=== PATIENT | female | born 1995 | race Caucasian/White ===

== ENCOUNTER 2020-01-10 11:59 | Emergency (ER) | payer MEDICAID, SELFPAY ==
--- NOTE | ~2020-01-10 | XR_ITS ---
EXAMINATION: XR chest 2V DATE: 01/10/2020 12:38 INDICATION: Cough, shortness of breath and fever TECHNIQUE: PA and lateral views of the chest were obtained. COMPARISON: Chest radiograph dated 06/20/2012 FINDINGS: The lungs remain clear with no focal airspace opacities, pulmonary edema, pleural effusion or pneumot horax. The cardiomediastinal silhouette is normal. Visualized bones and soft tissues are unremarkable . IMPRESSION: 1. No acute cardiopulmonary disease. Reviewed, dictated and finalized at location A.
[2020-01-10 12:10] VITALS: BP 161/86; PULSE 87; RESP 22; TEMP 36.6; O2SAT 99
--- NOTE | 2020-01-10 12:30 | ED.GENADULT ---
HPI - General Adult General Chief complaint: Upper Respiratory Infection Stated complaint: horrible cough fever and runny nose History of Present Illness HPI narrative: Cayla Is a 24-year-old woman with a past medical history anxiety and depression that presented to the ED with URI type symptoms as well as shortness of breath. She had a sore throat for a few days but started having a runny nose and cough yesterday. Yesterday her fever became as high as 102 at home. Today she had worsening cough and felt short of breath so she came to the emergency department. No chest pain, nausea vomiting but does admit some diarrhea. No lightheadedness or syncope. Related Data Home Medications Medication Instructions Recorded Confirmed citalopram 40 mg PO DAILY 01/10/20 01/10/20 lurasidone [Latuda] 80 mg PO DAILY 01/10/20 01/10/20 oxcarbazepine 300 mg PO BID 01/10/20 01/10/20 trazodone 100 mg PO HS 01/10/20 01/10/20 Allergies Allergy/AdvReac Type Severity Reaction Status Date / Time Fish Containing Products Allergy Unknown Verified 12/23/16 13:25 Review of Systems Constitutional: Constitutional: Reports as per HPI Eyes: Eyes: Reports no additional eye complaints ENT: Reports as per HPI Cardiovascular: Cardiovascular: Reports no additional cardiovascular complaints Respiratory: Respiratory: Reports cough, Reports dyspnea and Denies wheezing Gastrointestinal: Gastrointestinal: Denies constipation, Reports diarrhea, Denies nausea and Denies vomiting Genitourinary: Genitourinary: Reports no additional female genitourinary complaints Musculoskeletal: Musculoskeletal: Reports no additional musculoskeletal complaints Integumentary/Breasts: Skin/Breast: Reports system reviewed and no additional complaints, except as docu Neurologic: Reports system reviewed and no additional complaints, except as documented Psychiatric: Psychiatric: Reports no additional psychiatric complaints Endocrine: Endocrine: Reports no additional endocrine complaints Hematologic/Lymphatic: Hematologic/Lymphatic: Reports no additional hematologic/lymphatic complaints Allergic/Immunologic: Allergic/Immunologic: Reports no additional allergic/immunologic complaints Exam Const: General: no acute distress Orientation/consciousness: patient oriented x3 HENMT: Other: Normocephalic, atraumatic Eyes: Conjunctivae: conjunctivae normal Pupils: Equal, round and reactive pupils present Neck: Neck: normal visual inspection Resp: Effort & Inspection: not labored, no retractions, not tachypneic and no use of accessory muscles Auscultation: clear to auscultation bilaterally Cardio: Rate: regular rate Rhythm: regular rhythm Heart sounds: no murmurs GI: GI Palp: Yes Soft to palpation, No Tenderness to palpation present (GI), No Guarding due to palpation present (GI) and No Rigid due to palpation : General: Yes no CVA tenderness Skin: General skin exam: normal color Rashes: no rashes Neuro: General: patient oriented x3 and moves all extremities Extrem: General: normal to inspection Psych: Mental Status: mental status grossly normal Course Course Emergency Course: Cayla was seen evaluated. Ordered BMP, CBC and chest x-ray to evaluate for pneumonia. labs and chest x-ray were unremarkable with exception the flu swab. She is positive for influenza B. she was educated on return precautions and discharged. Discharge Plan Discharge Clinical Impression: Influenza Patient Disposition: Home, Self-Care Condition: Stable Instructions: Influenza (ED) Additional Instructions: Please return to the emergency department for any new, worsening, or concerning symptoms especially worsening shortness of breath. Prescriptions: No Action citalopram 40 mg tablet 40 mg PO DAILY RF: 0 oxcarbazepine 300 mg tablet 300 mg PO BID RF: 0 trazodone 100 mg tablet 100 mg PO HS RF: 0 Latuda 80 mg tablet 80 mg PO DAILY
[2020-01-10 12:48] LABS: Basophils Absolute Auto 0.02 K/mm3 (0.00-0.10); Basophils Percent Auto 0.4 % (0.0-1.0); Eosinophils Absolute Auto 0.17 K/mm3 (0.02-0.50); Hematocrit 43.7 % (35.0-49.0); Hemoglobin 14.9 g/dL (12.0-15.0); Immature Granulocyte Absolute 0.03 K/mm3 (0.00-0.00); Immature Granulocyte Percent A 0.5 % (0.0-0.0); Lymphocytes Absolute Auto 0.93 K/mm3 (1.10-4.50); Lymphocytes Percent Auto 16.4 % (18.0-42.0); Mean Corpuscular HGB Conc 34.1 g/dL (32.0-36.0); Mean Corpuscular Hemoglobin 31.2 pg (27.0-31.0); Mean Corpuscular Volume 91.4 fL (78.0-102.0); Monocytes Absolute Auto 0.75 K/mm3 (0.10-0.90); Monocytes Percent Auto 13.2 % (2.0-11.0); Neutrophils Absolute Auto 3.8 K/mm3 (1.7-7.2); Neutrophils Percent Auto 66.5 % (50.0-70.0); Platelet Count Result 349 K/mm3 (150-420); Red Blood Count 4.78 M/mm3 (4.20-5.40); Red Cell Distribution Width 13.1 % (11.6-14.4); White Blood Count 5.7 K/mm3 (4.8-10.8)
[2020-01-10 13:00] LABS: Anion Gap 16.9 mmol/L (7-16); Blood Urea Nitrogen 11 mg/dL (7-18); Calcium 8.3 mg/dL (8.5-10.1); Carbon Dioxide 21 mmol/L (21-32); Chloride 104 mmol/L (98-108); Estimated CRCL calculation 128 ml/min; Estimated Glomerular Filt Rate > 60; Glucose 105 mg/dL (70-99); Osmolality Calculated 285 mOsm/kg (285-295); Potassium 3.9 mmol/L (3.5-5.1); Sodium 138 mmol/L (136-145)
[2020-01-10 13:09] LABS: Influenza Control Valid (Valid)
[2020-01-10 13:20] VITALS: RESP 20; O2SAT 98
== END 2020-01-10 13:20 | disposition home or self-care (01) ==
PROVIDERS: Emergency Provider Family Medicine; PCP Family Medicine
DX: J11.1 Influenza due to unidentified influenza virus with other respiratory manifestations (principal)
CPT/HCPCS: 36415; 71046; 80048; 85025; 87081; 87804; 87880; 99282; 99283

== ENCOUNTER 2020-08-08 15:43 | Outpatient (CLI) | payer MEDICAID, SELFPAY ==
[2020-08-10 13:17] LABS: SARS-CoV-2 RNA PCR Negative
== END 2020-08-08 15:44 | disposition home or self-care (01) ==
LOC: CHSLAB 15:46
PROVIDERS: PCP Family Medicine; Visit Provider Family Medicine
DX: Z20.828 Contact with and (suspected) exposure to other viral communicable diseases (principal)
CPT/HCPCS: 87635; C9803; U0003

== ENCOUNTER 2020-08-21 16:14 | Outpatient (CLI) | payer MEDICAID, SELFPAY ==
[2020-08-21 16:56] LABS: Influenza Control Valid (Valid)
[2020-08-22 13:32] LABS: SARS-CoV-2 RNA PCR Negative
== END 2020-08-21 16:15 | disposition home or self-care (01) ==
LOC: CHSLAB 16:17
PROVIDERS: PCP Family Medicine; Visit Provider Family Medicine
DX: J00 Acute nasopharyngitis [common cold] (principal); Z20.828 Contact with and (suspected) exposure to other viral communicable diseases
CPT/HCPCS: 87081; 87635; 87804; 87880; C9803; U0003

== ENCOUNTER 2021-01-17 08:07 | Outpatient (CLI) | payer MEDICAID, SELFPAY ==
--- NOTE | ~2021-01-17 | US_ITS ---
US right upper quadrant DATE: 01/17/2021 08:37 INDICATION: Hyperlipidemia. Nonalcoholic fatty liver disease. TECHNIQUE: Real-time imaging of liver, pancreas, gallbladder fossa areas COMPARISON: 10/18/2015 CT abdomen pelvis FINDINGS: The gallbladder is surgically absent. The pancreas is obscured by bowel gas. There is fatty infiltration of the liver, which is difficult to penetrate. The liver would be more op timally evaluated by CT or MR examination as result. Doppler evaluation is limited. No obvious hepati c space-occupying mass lesion is evident. IMPRESSION: Status post cholecystectomy Fatty infiltration of liver Limited evaluation of pancreas The liver and pancreas would be more optimally evaluated by CT examination Reviewed, dictated and finalized at Location A. Reviewed, dictated and finalized at location A.
[2021-01-17 08:19] LABS: Basophils Absolute Auto 0.04 K/mm3 (0.00-0.10); Basophils Percent Auto 0.6 % (0.0-1.0); Eosinophils Absolute Auto 0.32 K/mm3 (0.02-0.50); Eosinophils Percent Auto 5.1 % (1.0-6.0); Immature Granulocyte Absolute 0.02 K/mm3 (0.00-0.00); Immature Granulocyte Percent A 0.3 % (0.0-0.0); Lymphocytes Absolute Auto 1.85 K/mm3 (1.10-4.50); Lymphocytes Percent Auto 29.6 % (18.0-42.0); Mean Corpuscular HGB Conc 34.1 g/dL (32.0-36.0); Mean Corpuscular Hemoglobin 31.2 pg (27.0-31.0); Mean Corpuscular Volume 91.5 fL (78.0-102.0); Mean Platelet Volume 9.4 fl (9.2-11.8); Monocytes Absolute Auto 0.66 K/mm3 (0.10-0.90); Monocytes Percent Auto 10.6 % (2.0-11.0); Neutrophils Absolute Auto 3.4 K/mm3 (1.7-7.2); Neutrophils Percent Auto 53.8 % (50.0-70.0); Platelet Count Result 404 K/mm3 (150-420); Red Blood Count 4.81 M/mm3 (4.20-5.40); White Blood Count 6.2 K/mm3 (4.8-10.8)
[2021-01-17 08:46] LABS: Alanine Aminotransferase 56 U/L (14-59); Albumin Level 3.6 g/dL (3.4-5.0); Alkaline Phosphatase 65 U/L (46-116); Anion Gap 11 mmol/L (8-16); Aspartate Amino Transferase 37 U/L (15-37); Bilirubin Direct 0.1 mg/dL (0-0.2); Bilirubin,Total 0.5 mg/dL (0.00-1.00); Blood Urea Nitrogen 16 mg/dL (7-18); Calcium 8.4 mg/dL (8.5-10.1); Carbon Dioxide 26 mmol/L (21-32); Chloride 102 mmol/L (98-108); Cholesterol 254 mg/dL (0-200); Estimated Glomerular Filt Rate > 60; GGT 80 U/L (5-55); Glucose 131 mg/dL (70-99); HDL Direct 35 mg/dL (40-60); LDL Cholesterol Calculated 160 mg/dL (<130); Osmolality Calculated 291 mOsm/kg (285-295); Potassium 3.7 mmol/L (3.5-5.1); Sodium 139 mmol/L (136-145); Total Protein 7.2 g/dL (6.4-8.2); Triglycerides 297 mg/dL (0-150)
[2021-01-20 15:15] LABS: Hemoglobin A1C 5.9 % (<5.7)
[2021-01-20 19:17] LABS: Hepatitis A Antibody IgM Nonreactive; Hepatitis B Core Antibody Nonreactive (Nonreactive); Hepatitis B Surface Antigen Nonreactive (Nonreactive); Hepatitis C Signal to Cutoff 0.08 ratio (<1.00); Hepatitis C Virus Antibody Nonreactive (Nonreactive)
== END 2021-01-17 08:08 | disposition home or self-care (01) ==
PROVIDERS: PCP Family Medicine; Visit Provider Family Medicine
DX: K76.0 Fatty (change of) liver, not elsewhere classified (principal); E78.5 Hyperlipidemia, unspecified; I10 Essential (primary) hypertension; R73.9 Hyperglycemia, unspecified
CPT/HCPCS: 36415; 76705; 80053; 80061; 80074; 82248; 82977; 83036; 85025

== ENCOUNTER 2021-02-15 12:07 | Outpatient (CLI) | payer MEDICAID, SELFPAY ==
--- NOTE | ~2021-02-15 | XR_ITS ---
XR wrist RT min 3V 02/15/2021 12:33 INDICATION: Right wrist pain PROCEDURE: 4 views right wrist COMPARISON: No prior studies for comparison. FINDINGS: Fracture, dislocation or subluxation is not identified. The soft tissues appear within norm al limits. No foreign bodies are identified. IMPRESSION: 1: NO ACUTE BONE OR JOINT ABNORMALITY IDENTIFIED. Reviewed, dictated and finalized at location A.
== END 2021-02-15 12:08 | disposition home or self-care (01) ==
LOC: CHSIMG 12:09
PROVIDERS: PCP Family Medicine; Visit Provider Family Medicine
DX: M25.531 Pain in right wrist (principal)
CPT/HCPCS: 73110

== ENCOUNTER 2021-03-21 13:56 | Outpatient (CLI) | payer MEDICAID, SELFPAY | END 2021-03-21 13:57 | disposition home or self-care (01) | LOC: CHSCOVIDVC 13:57 | PROVIDERS: PCP Family Medicine | DX: Z53.9 Procedure and treatment not carried out, unspecified reason (principal) | CPT/HCPCS: 99199 ==

== ENCOUNTER 2021-07-15 11:01 | Outpatient (CLI) | payer OTHER, SELFPAY ==
[2021-07-15 12:19] LABS: SARS-CoV-2 RNA PCR Negative (Negative)
== END 2021-07-15 11:02 | disposition home or self-care (01) ==
LOC: CHSLAB 11:05
PROVIDERS: PCP Family Medicine; Visit Provider Family Medicine
DX: R06.02 Shortness of breath (principal); R19.7 Diarrhea, unspecified; J02.9 Acute pharyngitis, unspecified; Z20.822 Contact with and (suspected) exposure to COVID-19
CPT/HCPCS: 87081; 87880; C9803; U0003; U0005

== ENCOUNTER 2021-08-12 10:33 | Outpatient (CLI) | payer OTHER, SELFPAY ==
[2021-08-12 10:46] LABS: Hematocrit 41.7 % (35.0-49.0); Hemoglobin 14.1 g/dL (12.0-15.0); Mean Corpuscular HGB Conc 33.8 g/dL (32.0-36.0); Mean Corpuscular Hemoglobin 30.6 pg (27.0-31.0); Mean Corpuscular Volume 90.5 fL (78.0-102.0); Mean Platelet Volume 9.8 fl (9.2-11.8); Platelet Count Result 256 K/mm3 (150-420); Red Blood Count 4.61 M/mm3 (4.20-5.40); Red Cell Distribution Width 13.1 % (11.6-14.4); White Blood Count 3.6 K/mm3 (4.8-10.8)
[2021-08-12 10:56] LABS: Hemoglobin A1C 5.5 % (<5.7)
[2021-08-12 11:13] LABS: Band Neutrophils Percent 2 % (0-6); Eosinophils Absolute Manual 0.07 K/mm3 (0.02-0.5); Eosinophils Percent Manual 2 % (1-6); Lymphocytes Percent Manual 39 % (18-44); Monocytes Absolute Manual 0.46 K/mm3 (0.1-0.90); Monocytes Percent Manual 13 % (3-9); Myelocytes Percent 1 %; Neutrophils Absolute Manual 1.62 K/mm3 (1.7-7.2); Neutrophils Percent Manual 43 % (46-73); Total Cells Counted 100
[2021-08-12 11:14] LABS: Platelet Estimate Adequate (Adequate)
[2021-08-12 11:46] LABS: Alanine Aminotransferase 65 U/L (14-59); Albumin Level 3.5 g/dL (3.4-5.0); Alkaline Phosphatase 57 U/L (46-116); Anion Gap 10 mmol/L (8-16); Aspartate Amino Transferase 37 U/L (15-37); Bilirubin,Total 0.7 mg/dL (0.00-1.00); Blood Urea Nitrogen 9 mg/dL (7-18); CRP < 0.5 mg/dL (0.0-0.9); Calcium 7.8 mg/dL (8.5-10.1); Carbon Dioxide 24 mmol/L (21-32); Chloride 105 mmol/L (98-108); Cholesterol 207 mg/dL (0-200); Estimated Glomerular Filt Rate > 60; Glucose 99 mg/dL (70-99); HDL Direct 24 mg/dL (40-60); LDL Cholesterol Calculated 113 mg/dL (<130); Osmolality Calculated 286 mOsm/kg (285-295); Potassium 4.1 mmol/L (3.5-5.1); Sodium 139 mmol/L (136-145); Thyroid Stimulating Hormone 3.61 uIU/mL (0.36-3.74); Total Protein 6.8 g/dL (6.4-8.2); Triglycerides 349 mg/dL (0-150)
[2021-08-17 12:15] LABS: Vitamin D 25 Hydroxy 17 ng/mL (30-100)
== END 2021-08-12 10:34 | disposition home or self-care (01) ==
LOC: CHSLAB 10:36
PROVIDERS: PCP Family Medicine; Visit Provider Nurse Practitioner Family
DX: R20.0 Anesthesia of skin (principal); I10 Essential (primary) hypertension; E83.51 Hypocalcemia
CPT/HCPCS: 36415; 80053; 80061; 82306; 83036; 84443; 85025; 86140

== ENCOUNTER 2021-08-15 12:02 | Outpatient (CLI) | payer OTHER, SELFPAY ==
--- NOTE | ~2021-08-15 | XR_ITS ---
EXAMINATION: XR abdomen obstructive series DATE: 08/15/2021 13:09 INDICATION: Abdominal pain with nausea TECHNIQUE: Supine and upright views of the abdomen. FINDINGS: No prior studies for comparison. The visualized lung parenchyma is normal.. There is a nonobstructed bowel gas pattern. Gas and stool are seen throughout the colon to the level of the rectum. There is no free air. There are cholecyste ctomy clips. IMPRESSION: 1. No acute abdominal abnormality. Reviewed, dictated and finalized at location B.
[2021-08-15 13:28] LABS: Hematocrit 36.2 % (35.0-49.0); Hemoglobin 12.9 g/dL (12.0-15.0); Mean Corpuscular HGB Conc 35.6 g/dL (32.0-36.0); Mean Corpuscular Volume 92.6 fL (78.0-102.0); Mean Platelet Volume 10.5 fl (9.2-11.8); Platelet Count Result 251 K/mm3 (150-420); Red Blood Count 3.91 M/mm3 (4.20-5.40); Red Cell Distribution Width 12.9 % (11.6-14.4); White Blood Count 5.3 K/mm3 (4.8-10.8)
[2021-08-15 13:49] LABS: Alanine Aminotransferase 93 U/L (14-59); Albumin Level 3.3 g/dL (3.4-5.0); Alkaline Phosphatase 64 U/L (46-116); Amylase 39 U/L (25-115); Anion Gap 13 mmol/L (8-16); Aspartate Amino Transferase 81 U/L (15-37); Band Neutrophils Percent 1 % (0-6); Bilirubin,Total 2.1 mg/dL (0.00-1.00); Blood Urea Nitrogen 10 mg/dL (7-18); Calcium 7.6 mg/dL (8.5-10.1); Carbon Dioxide 22 mmol/L (21-32); Chloride 103 mmol/L (98-108); Estimated Glomerular Filt Rate > 60; Glucose 118 mg/dL (70-99); Lipase 126 U/L (73-393); Lymphocytes Absolute Manual 2.17 K/mm3 (1.1-4.5); Lymphocytes Percent Manual 41 % (18-44); Monocytes Absolute Manual 0.68 K/mm3 (0.1-0.90); Monocytes Percent Manual 13 % (3-9); Neutrophils Absolute Manual 2.43 K/mm3 (1.7-7.2); Neutrophils Percent Manual 45 % (46-73); Osmolality Calculated 286 mOsm/kg (285-295); Platelet Estimate Adequate (Adequate); Potassium 3.7 mmol/L (3.5-5.1); Sodium 138 mmol/L (136-145); Total Cells Counted 100
[2021-08-15 14:13] LABS: SARS-CoV-2 RNA PCR Negative (Negative)
== END 2021-08-15 12:03 | disposition home or self-care (01) ==
LOC: CHSLAB 12:03
PROVIDERS: PCP Family Medicine; Visit Provider Family Medicine
DX: R10.9 Unspecified abdominal pain (principal); J34.89 Other specified disorders of nose and nasal sinuses; Z20.822 Contact with and (suspected) exposure to COVID-19
CPT/HCPCS: 36415; 74019; 80053; 82150; 83690; 85025; C9803; U0003; U0005

== ENCOUNTER 2021-08-15 16:49 | Emergency (ER) | payer OTHER, SELFPAY ==
--- NOTE | ~2021-08-15 | CT_ITS ---
EXAMINATION: CT abdomen pelvis w con INDICATION: Right upper quadrant pain TECHNIQUE: Computed tomographic images of the abdomen and pelvis were obtained after the administrati on of 100 cc of Omnipaque 350 intravenous contrast. The dose-length product (DLP) was 1650.24 mGy-cm. Automated exposure control and iterative reconstruction technique were employed. COMPARISON: 10/18/2015 FINDINGS: The heart size is normal. A 3 mm nodule of the right lower lobe likely represents old granu lomatous disease. There is geographic low-attenuation in the posterior/inferior portion of the spleen . The gallbladder is surgically absent. The liver, pancreas, and adrenal glands are normal. The kidne ys are unremarkable. No pathologically enlarged abdominal or pelvic lymph nodes are identified. There is no free intraperitoneal gas or evidence of bowel obstruction. There is mild lumbar spondylosis. IMPRESSION: 1. Geographic area of low attenuation in the posterior/inferior aspect of the spleen. In the absence of known trauma, findings consistent with splenic infarct. Reviewed, dictated and finalized at location A. IMPRESSION: 1. Geographic area of low attenuation in the posterior/inferior aspect of the s pleen. In the absence of known trauma, findings consistent with splenic infarct .
[2021-08-15 17:00] VITALS: BP 173/102; PULSE 105; RESP 20; TEMP 37.6; O2SAT 97
--- NOTE | 2021-08-15 17:12 | ED.GENADULT ---
HPI - General Adult General Chief complaint: Abdominal Pain Stated complaint: elevated lab work Source: patient and family Mode of arrival: ambulatory Limitations: no limitations History of Present Illness HPI narrative: Cayla is a 26F with a PMH of depression, HTN and a history of cholecystectomy that presented to the ED from her PCP office with RUQ pain. It started last night and has become progressively worse. It a cramping pain that comes and goes. It is worse when she is lying down. She admits nauea but no vomiting. No diarrhea or constipation. Related Data Home Medications Medication Instructions Recorded Confirmed lurasidone [Latuda] 80 mg PO DAILY 01/10/20 08/16/21 oxcarbazepine 300 mg PO BID 01/10/20 08/16/21 famotidine 20 mg PO DAILY 08/15/21 08/16/21 fluoxetine 20 mg PO DAILY 08/15/21 08/16/21 hydrochlorothiazide 25 mg PO DAILY 08/15/21 08/16/21 metoprolol succinate 50 mg PO DAILY 08/15/21 08/16/21 spironolactone 50 mg PO DAILY 08/15/21 08/16/21 Allergies Allergy/AdvReac Type Severity Reaction Status Date / Time Fish Containing Products Allergy Unknown Swelling Verified 08/16/21 14:20 of Lip/Tongue/Throat Review of Systems Constitutional: Constitutional: Reports no additional constitutional complaints Eyes: Eyes: Reports no additional eye complaints ENT: Reports system reviewed and no additional complaints, except as documented Cardiovascular: Cardiovascular: Reports no additional cardiovascular complaints Respiratory: Respiratory: Reports no additional respiratory complaints Gastrointestinal: Gastrointestinal: Reports as per HPI Genitourinary: Genitourinary: Reports no additional female genitourinary complaints Musculoskeletal: Musculoskeletal: Reports no additional musculoskeletal complaints Integumentary/Breasts: Skin/Breast: Reports system reviewed and no additional complaints, except as docu Neurologic: Reports system reviewed and no additional complaints, except as documented Psychiatric: Psychiatric: Reports no additional psychiatric complaints Endocrine: Endocrine: Reports no additional endocrine complaints Hematologic/Lymphatic: Hematologic/Lymphatic: Reports no additional hematologic/lymphatic complaints Allergic/Immunologic: Allergic/Immunologic: Reports no additional allergic/immunologic complaints PMFSH Past Medical History Medical History (Updated 08/17/21 @ 00:00 by Background Daemon) Bipolar 1 disorder Depression Dyslipidemia GERD (gastroesophageal reflux disease) Hypertension Surgical History Surgical History History of ear surgery S/P tonsillectomy Status post cholecystectomy Social History Social History Smoking status: Never smoker Alcohol intake: never Substance use: never Living arrangements: with family Exam Const: General: no acute distress and alert Orientation/consciousness: patient oriented x3 Limitations: No altered mental status HENMT: Head: normal to inspection Other: normocephalic, atraumatic Eyes: Conjunctivae: conjunctivae normal Pupils: Equal, round and reactive pupils present Neck: Neck: normal visual inspection Chest: Chest palpation & inspection: normal inspection of the chest Resp: Effort & Inspection: normal respiratory effort and not tachypneic Auscultation: clear to auscultation bilaterally Cardio: Rate: regular rate Rhythm: regular rhythm GI: Other: +Pond sign and some epigastric tenderness. No rebound tenderness or guarding. Normal BS : General: Yes no CVA tenderness Skin: General skin exam: normal color Rashes: no rashes Neuro: General: patient oriented x3, moves all extremities and no meningeal signs Extrem: General: normal to inspection Psych: Mental Status: mental status grossly normal Course Course Emergency Course: Ordered UA and urine test. EXAMINAT
[2021-08-15] MEDS: ONDANSETRON HCL ODT 4 MG TABLET PO (17:28)
[2021-08-15 17:36] LABS: SPREG INTERNAL CONTROL Positive; Serum Qual hCG Negative
--- NOTE | 2021-08-15 19:20 | PC.NURSE ---
REPORT PROVIDED TO ONCOMING GIOVANNA GARCÍA
[2021-08-15] MEDS: ENOXAPARIN 60 MG/0.6 ML SYRINGE 50 MG SUB-Q (20:17)
[2021-08-15] MEDS: ENOXAPARIN 100 MG/ML SYRINGE SUB-Q (20:18)
[2021-08-15 20:28] VITALS: BP 148/81; PULSE 98; RESP 20; TEMP 36.6; O2SAT 98
--- NOTE | 2021-08-16 13:10 | PC.NURSE ---
Pt called c/o pain and asked if she would need to be seen again. Pt advised she would need to be seen again. Pt also stated [facility] in [place] did not have the dose of Lovenox prescribed. Able to find proper dose at [facility] in [place]. Prescription called in. Called [facility] and cancelled prescription. Attempted to call pt to notify her of changes. Pt did not answer the phone and does not have voicemail set up. Will attempt to contact pt later.
--- NOTE | 2021-08-16 13:14 | PC.NURSE ---
Was able to reach pt. Pt notified prescription for Lovenox is at [facility] in [place]. Pt verbalized understanding.
== END 2021-08-15 20:31 | disposition home or self-care (01) ==
PROVIDERS: Emergency Provider Family Medicine; PCP Family Medicine
DX: D73.5 Infarction of spleen (principal); R94.5 Abnormal results of liver function studies
CPT/HCPCS: 74177; 84703; 96372; 99283; A9270; J1650; Q9967

== ENCOUNTER 2021-08-16 13:52 | Emergency (ER) | payer OTHER, SELFPAY ==
[2021-08-16 14:05] VITALS: BP 164/99; PULSE 106; RESP 20; TEMP 36.9; O2SAT 97
[2021-08-16 14:27] VITALS: BP 152/82; PULSE 104
--- NOTE | 2021-08-16 14:58 | ED.ABDPAIN ---
HPI - Abdominal Pain General Chief Complaint: Abdominal Pain Stated Complaint: L sided abd pain, feels like pressure Time Seen by Provider: 08/16/21 14:58 Source: patient Mode of arrival: ambulatory Limitations: no limitations History of Present Illness HPI narrative: 26-year-old woman comes in today complaining of left upper abdomen pain that has been present for the last day or so. She states the pain comes and goes and is worse when she takes deep breath. It is also worse when she lies down. She states that she was here last night and diagnosed with a splenic infarction and was told that she would get some pain medication. She has had no fever, vomiting, lightheadedness, or shortness of breath. MD elicited complaint: abdominal pain Pain Consistency: intermittent Location: LUQ Severity: moderate Quality: cramping and other (Pressure) Radiation: none Migration to: no migration Exacerbating factors: other (Position and taking a deep breath) Relieving factors: rest Associated symptoms: nausea Treatments prior to arrival: other (Warfarin and enoxaparin) Related Data Patient : No Home Medications Medication Instructions Recorded Confirmed lurasidone [Latuda] 80 mg PO DAILY 01/10/20 08/16/21 oxcarbazepine 300 mg PO BID 01/10/20 08/16/21 famotidine 20 mg PO DAILY 08/15/21 08/16/21 fluoxetine 20 mg PO DAILY 08/15/21 08/16/21 hydrochlorothiazide 25 mg PO DAILY 08/15/21 08/16/21 metoprolol succinate 50 mg PO DAILY 08/15/21 08/16/21 spironolactone 50 mg PO DAILY 08/15/21 08/16/21 Allergies Allergy/AdvReac Type Severity Reaction Status Date / Time Fish Containing Products Allergy Unknown Swelling Verified 08/16/21 14:20 of Lip/Tongue/Throat Review of Systems Review of Systems: All systems reviewed & are unremarkable except as noted in HPI and below Constitutional: Constitutional: Denies chills, Denies fatigue, Denies fever(s) and Denies weakness Cardiovascular: Cardiovascular: Denies chest pain and Denies radiating jaw, neck or arm pain Respiratory: Respiratory: Denies cough, Denies dyspnea and Denies wheezing Gastrointestinal: Gastrointestinal: Reports abdominal pain, Denies diarrhea, Reports nausea and Denies vomiting Genitourinary: Genitourinary: Denies nocturia and Denies dysuria Integumentary/Breasts: Skin/Breast: Denies pruritus, Denies erythema and Denies rash Neurologic: Denies vertigo, Denies dizziness, Denies syncope, Denies focal weakness and Denies weakness [facility] Past Medical History Medical History (Updated 08/16/21 @ 15:13 by Rosalio Matta MD) Bipolar 1 disorder Depression Dyslipidemia GERD (gastroesophageal reflux disease) Hypertension Surgical History Surgical History History of ear surgery S/P tonsillectomy Status post cholecystectomy Social History Social History Smoking status: Never smoker Alcohol intake: never Substance use: never Living arrangements: with family Exam Const: General: alert Nutritional Appearance: obese Orientation/consciousness: patient oriented x3 Other: Mild acute distress. Resp: Effort & Inspection: normal respiratory effort and not labored Auscultation: clear to auscultation bilaterally, no rales, no rhonchi and no wheezes Cardio: Rate: regular rate Rhythm: regular rhythm Heart sounds: no murmurs GI: GI Palp: Yes Soft to palpation and Yes Tenderness to palpation present (GI) (Left upper quadrant. No rebound or guarding) Skin: General skin exam: normal color, no jaundice and no pallor Rashes: no rashes Neuro: General: patient oriented x3, moves all extremities, no focal motor deficits and CN's II-XI intact bilaterally Speech: normal speech Gait exam (Neuro): Normal gait present Extrem: General: normal to inspection and no clubbing, cyanosis or edema Psych: Appearance: grossly normal and well kempt Ment
[2021-08-16 15:17] VITALS: BP 158/90; PULSE 97; RESP 18; TEMP 37.2; O2SAT 99
== END 2021-08-16 15:25 | disposition home or self-care (01) ==
PROVIDERS: Emergency Provider Emergency Medicine; PCP Family Medicine
DX: D73.5 Infarction of spleen (principal); E78.5 Hyperlipidemia, unspecified; K21.9 Gastro-esophageal reflux disease without esophagitis; I10 Essential (primary) hypertension
CPT/HCPCS: 99283

== ENCOUNTER 2021-08-21 08:55 | Outpatient (CLI) | payer OTHER, SELFPAY ==
--- NOTE | ~2021-08-21 | CT_ITS ---
EXAMINATION: CT abdomen pelvis w con EXAM DATE: 08/21/2021 09:45 INDICATION: Elevated bilirubin elev bilirubin, infarct of spleen, N/V/D. TECHNIQUE: Spiral CT of the abdomen and pelvis was performed following intravenous injection of 100 m L Omnipaque 350. Axial, coronal and sagittal images of the abdomen and pelvis were reviewed. The do se-length product (DLP) for this examination was 1559.77 mGy-cm. The exposure was tailored according to patient size (auto mA exposure control), and iterative reconstruction (ASIR) was used as addition al dose reduction technique. Comparison is made to prior examination from 08/15/2021. FINDINGS: There is moderate splenomegaly. Again there is small to moderate-sized region of geographic ally shaped splenic hypodensity consistent with infarction. There is hepatic steatosis without suspi cious focal lesion identified. Adrenal glands, pancreas are unremarkable. There are cholecystectomy clips. Portal and splenic veins are patent. Kidneys enhance symmetrically. There is no hydronephro sis. The uterus and ovaries are unremarkable, no adnexal mass. The bladder is unremarkable. There is no retroperitoneal or pelvic lymphadenopathy. The appendix is normal. The stomach and small bowel are unremarkable. There is expected amount of c olonic stool. No free intraperitoneal gas. The heart is normal in size. There are no pericardial or pleural effusions. There is 5 mm left lower lobe pleural-based nodule on image 19. There are no osteoblastic or osteolytic lesions identified. IMPRESSION: 1. 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 2. Left basilar nodule likely postinfectious given patient's age. 3. Hepatic steatosis. 4. Cholecystectomy. Reviewed, dictated and finalized at location B.
== END 2021-08-21 08:56 | disposition home or self-care (01) ==
LOC: CHSIMG 08:56
PROVIDERS: PCP Family Medicine; Visit Provider Family Medicine
DX: E80.7 Disorder of bilirubin metabolism, unspecified (principal); D73.5 Infarction of spleen
CPT/HCPCS: 74177; Q9967

== ENCOUNTER 2021-08-25 07:51 | Outpatient (CLI) | payer OTHER, SELFPAY ==
--- NOTE | ~2021-08-25 | US_ITS ---
EXAMINATION: US abdomen complete EXAM DATE: 08/25/2021 08:19 INDICATION: Jaundice. TECHNIQUE: Multiple grayscale and Doppler images of the complete abdomen were obtained (by a technolo cade who performed the scan) and subsequently reviewed. Comparison is made to prior examination from 01/17/2021. FINDINGS: The abdominal aorta is normal in caliber. Visualized portion IVC is patent. The pancreatic head a nd body are normal in appearance. The pancreatic tail is not visualized. There is echogenic liver parenchyma with poor penetration, hepatic steatosis. There are no focal libby er lesions identified. There is no evidence of intrahepatic biliary duct dilation. Portal venous f low was seen in the hepatopedal, normal direction and has normal Doppler waveform. Common bile duct measures 4 mm, which is normal. The gallbladder fossa is unremarkable. Right kidney: There is normal contour and echogenicity. It measures 12.5 x 4.4 x 6.1 centimeters. There are no focal renal lesions identified. There is no hydronephrosis. Left kidney: There is normal contour and echogenicity. It measures 12.5 x 5.0 x 5.7 centimeters. T here are no focal renal lesions identified. There is no hydronephrosis. The spleen is 17.3 cm in size, moderately enlarged. There is a focal heterogeneous hypoechoic masslik e region within this measuring [address] Correlating with prior CT abdomen pelvis from 08/21/2021, shape on that study was most consistent with a splenic infarction. IMPRESSION: 1. Moderate splenomegaly with hypoechoic heterogeneous region likely infarction seen on recent CT. 2. Hepatic steatosis. Reviewed, dictated and finalized at location A. IMPRESSION: 1. Moderate splenomegaly with hypoechoic heterogeneous region likely infarctio n seen on recent CT. 2. Hepatic steatosis.
[2021-08-25 08:50] LABS: Alanine Aminotransferase 90 U/L (14-59); Albumin Level 3.3 g/dL (3.4-5.0); Alkaline Phosphatase 67 U/L (46-116); Aspartate Amino Transferase 60 U/L (15-37); Bilirubin Direct 0.2 mg/dL (0-0.2); Bilirubin Indirect 0.5 mg/dL (0-1.0); Bilirubin,Total 0.7 mg/dL (0.00-1.00); Total Protein 6.8 g/dL (6.4-8.2)
== END 2021-08-25 07:52 | disposition home or self-care (01) ==
LOC: CHSIMG 07:52
PROVIDERS: PCP Family Medicine; Visit Provider Family Medicine
DX: R17 Unspecified jaundice (principal)
CPT/HCPCS: 36415; 76700; 80076

== ENCOUNTER 2022-04-11 12:22 | Emergency (ER) | payer OTHER, SELFPAY ==
--- NOTE | ~2022-04-11 | CT_ITS ---
EXAMINATION: CT abdomen pelvis wo con DATE: 04/11/2022 14:08 INDICATION: LOWER LEFT ABDOMEN PAIN AND DIARRHEA X 8 HOURS TECHNIQUE: Computed tomography (CT) of the abdomen and pelvis was performed without intravenous contr ast. Automated exposure control and iterative reconstruction technique were employed. The dose-length product was 1572.18 mGy-cm. COMPARISON: 08/21/2021. FINDINGS: Lower thorax: Unremarkable Liver: Normal. Biliary/Gallbladder: Gallbladder is absent. No bile duct dilation. Pancreas: No mass or duct dilation. Spleen: Normal. Adrenals:No mass. Kidneys: No mass, stone, or hydronephrosis. GI tract: No small or large bowel dilation. Normal appendix. Mesentery/Peritoneum: No ascites, mass, or free air. Retroperitoneum: No mass. Pelvis: Pelvic organs are within normal limits. Soft Tissues: Soft tissues and body wall unremarkable. Bones: No acute osseous finding. IMPRESSION: No acute abdominopelvic process. Reviewed, dictated and finalized at location K.
[2022-04-11 12:45] VITALS: BP 152/66; PULSE 91; RESP 20; TEMP 36.2; O2SAT 98
[2022-04-11 13:31] LABS: Basophils Absolute Auto 0.02 K/mm3 (0.00-0.10); Basophils Percent Auto 0.3 % (0.0-1.0); Eosinophils Absolute Auto 0.16 K/mm3 (0.02-0.50); Eosinophils Percent Auto 2.1 % (1.0-6.0); Hematocrit 40.5 % (35.0-49.0); Hemoglobin 13.8 g/dL (12.0-15.0); Immature Granulocyte Absolute 0.02 K/mm3 (0.00-0.00); Immature Granulocyte Percent A 0.3 % (0.0-0.0); Lymphocytes Absolute Auto 0.93 K/mm3 (1.10-4.50); Lymphocytes Percent Auto 12.1 % (18.0-42.0); Mean Corpuscular HGB Conc 34.1 g/dL (32.0-36.0); Mean Corpuscular Hemoglobin 30.5 pg (27.0-31.0); Mean Corpuscular Volume 89.4 fL (78.0-102.0); Mean Platelet Volume 9.3 fl (9.2-11.8); Monocytes Absolute Auto 0.61 K/mm3 (0.10-0.90); Monocytes Percent Auto 7.9 % (2.0-11.0); Neutrophils Percent Auto 77.3 % (50.0-70.0); Platelet Count Result 353 K/mm3 (150-420); Red Blood Count 4.53 M/mm3 (4.20-5.40); Red Cell Distribution Width 13.1 % (11.6-14.4); White Blood Count 7.7 K/mm3 (4.8-10.8)
[2022-04-11 13:31] LABS: Add Urine Microscopic? NO; Appearance Urine Clear (Clear); Bilirubin Urine Negative (Negative); Blood Urine Negative (Negative); Color Urine Light Yellow (Yellow); Glucose Urine UA Negative (Negative); Ketones Urine Negative (Negative); Leukocyte Esterase Ur Negative (Negative); Nitrate Urine Negative (Negative); Protein Urine Negative (Negative); Urobilinogen Urine 0.2 mg/dL (0.2-1.0); pH Urine 5.5 (5.0-8.0)
[2022-04-11 13:42] LABS: Pregnancy On Board Control Positive; Urine Pregnancy Test Negative
[2022-04-11 13:46] LABS: Alanine Aminotransferase 41 U/L (14-59); Albumin Level 3.4 g/dL (3.4-5.0); Alkaline Phosphatase 52 U/L (46-116); Anion Gap 8 mmol/L (8-16); Aspartate Amino Transferase 22 U/L (15-37); Bilirubin,Total 0.3 mg/dL (0.00-1.00); Blood Urea Nitrogen 12 mg/dL (7-18); Calcium 8.2 mg/dL (8.5-10.1); Carbon Dioxide 23 mmol/L (21-32); Chloride 103 mmol/L (98-108); Estimated CRCL calculation 167 ml/min; Estimated Glomerular Filt Rate > 60; Glucose 111 mg/dL (70-99); Osmolality Calculated 278 mOsm/kg (285-295); Potassium 3.6 mmol/L (3.5-5.1); Sodium 134 mmol/L (136-145); Total Protein 7.3 g/dL (6.4-8.2)
[2022-04-11] MEDS: SODIUM CHLORIDE 0.9% IV 1,000 ML 999 ML IV CONT (14:09)
[2022-04-11 14:30] VITALS: BP 132/71; PULSE 65; RESP 18; TEMP 36.7; O2SAT 100
--- NOTE | 2022-04-11 14:32 | ED.ABDPAIN ---
HPI - Abdominal Pain General Chief Complaint: Abdominal Pain Stated Complaint: L sided abd pain when breathing, nausea, diarrhea Source: patient Mode of arrival: ambulatory Limitations: no limitations History of Present Illness HPI narrative: This is a 26-year-old female morbidly obese presents with nausea with no episodes of vomiting no fever chills has some left upper quadrant pain and cramping with some diarrhea loose stools with no fever chills no chest pain no shortness of breath no dysuria or hematuria. MD elicited complaint: abdominal pain Onset (ago): day(s) Pain Consistency: intermittent Location: LUQ Severity: mild Quality: aching Related Data Home Medications Medication Instructions Recorded Confirmed lurasidone 80 mg tablet (Latuda) 80 mg PO DAILY 01/10/20 04/11/22 oxcarbazepine 300 mg tablet 300 mg PO BID 01/10/20 04/11/22 famotidine 20 mg tablet 20 mg PO DAILY 08/15/21 04/11/22 fluoxetine 20 mg capsule 20 mg PO DAILY 08/15/21 04/11/22 hydrochlorothiazide 25 mg tablet 25 mg PO DAILY 08/15/21 04/11/22 metoprolol succinate 50 mg 50 mg PO DAILY 08/15/21 04/11/22 tablet,extended release 24 hr spironolactone 50 mg tablet 50 mg PO DAILY 08/15/21 04/11/22 Allergies Allergy/AdvReac Type Severity Reaction Status Date / Time Fish Containing Products Allergy Unknown Swelling Verified 04/11/22 13:15 of Lip/Tongue/Throat Review of Systems Review of Systems: All systems reviewed & are unremarkable except as noted in HPI and below PMFSH Past Medical History Medical History Bipolar 1 disorder Depression Dyslipidemia GERD (gastroesophageal reflux disease) Hypertension Surgical History Surgical History History of ear surgery S/P tonsillectomy Status post cholecystectomy Social History Social History Smoking status: Never smoker Alcohol intake: never Substance use: never Exam Const: General: healthy appearing, no acute distress and alert HENMT: Head: normal to inspection Eyes: Conjunctivae: conjunctivae normal Pupils: Equal, round and reactive pupils present Neck: Neck: normal visual inspection, no lymphadenopathy and no meningeal signs Chest: Chest palpation & inspection: normal inspection of the chest Resp: Effort & Inspection: normal respiratory effort Auscultation: clear to auscultation bilaterally Cardio: Rate: regular rate Rhythm: regular rhythm GI: GI Palp: Yes Soft to palpation and Yes Tenderness to palpation present (GI) Auscultation: normal bowel sounds : General: Yes bladder normal to palpation Urinary Catheter: Urinary Catheter: patent and draining Back/Spine/Pelvis: Back: no CVA tenderness Skin: General skin exam: normal color Rashes: no rashes Wounds: no wounds Neuro: General: patient oriented x3 and moves all extremities Extrem: General: normal to inspection and no clubbing, cyanosis or edema Psych: Mental Status: mental status grossly normal Affect: normal affect Course Course Emergency Course: Labs reviewed with patient CT scan reviewed with patient and CT scan with no acute findings patient had a mildly diminished sodium level at 1:34 a.m., receiving IV fluids. Vital Signs Vital signs: Vital Signs Temperature 36.2 C L 04/11/22 12:45 Pulse Rate 91 04/11/22 12:45 Respiratory Rate 20 04/11/22 12:45 Blood Pressure 152/66 H 04/11/22 12:45 Pulse Oximetry 98 04/11/22 12:45 Oxygen Delivery Room Air 04/11/22 12:45 Temperature 36.2 C L 04/11/22 12:45 Pulse Rate 91 04/11/22 12:45 Respiratory Rate 20 04/11/22 12:45 Blood Pressure 152/66 H 04/11/22 12:45 Pulse Oximetry 98 04/11/22 12:45 Oxygen Delivery Room Air 04/11/22 12:45 MDM - Abdominal Pain Lab Data Result diagrams: 04/11/22 13:23 04/11/22 13:23
== END 2022-04-11 15:27 | disposition home or self-care (01) ==
PROVIDERS: Emergency Provider Emergency Medicine; PCP Family Medicine
DX: K52.9 Noninfective gastroenteritis and colitis, unspecified (principal)
CPT/HCPCS: 36415; 74176; 80053; 81003; 81025; 85025; 96360; 99284; J7030

== ENCOUNTER 2022-05-19 13:03 | Outpatient (CLI) | payer OTHER, SELFPAY ==
--- NOTE | ~2022-05-19 | XR_ITS ---
XR knee LT 3V 05/19/2022 13:45 Indication: Left knee pain Procedure: 3 views right knee Comparison: Comparison to multiple prior studies sequentially, with oldest reviewed study dated 12/2021. Findings: There is mild osteoarthritis of the right knee. No fracture, subluxation or dislocation. No significant joint effusion. No foreign bodies. Impression: 1: Mild tricompartment osteoarthritis of the right knee. Reviewed, dictated and finalized at location A. Impression: 1: Mild tricompartment osteoarthritis of the right knee.
== END 2022-05-19 13:04 | disposition home or self-care (01) ==
LOC: CHSIMG 13:05
PROVIDERS: PCP Family Medicine; Visit Provider Family Medicine
DX: M25.561 Pain in right knee (principal)
CPT/HCPCS: 73562

== ENCOUNTER 2022-06-15 15:01 | Outpatient (CLI) | payer OTHER, SELFPAY ==
[2022-06-15 16:22] LABS: Influenza A QL RT-PCR Negative (Negative); Influenza B QL RT-PCR Negative (Negative); SARS-CoV-2 RNA PCR Positive (Negative)
== END 2022-06-15 15:02 | disposition home or self-care (01) ==
PROVIDERS: PCP Family Medicine; Visit Provider Nurse Practitioner Family
DX: U07.1 COVID-19 (principal); J06.9 Acute upper respiratory infection, unspecified; J02.9 Acute pharyngitis, unspecified; R05.9 Cough, unspecified
CPT/HCPCS: 87502; C9803; U0003; U0005

== ENCOUNTER 2022-08-07 10:28 | Outpatient (CLI) | payer OTHER, SELFPAY ==
[2022-08-07 10:43] LABS: Basophils Absolute Auto 0.03 K/mm3 (0.00-0.10); Basophils Percent Auto 0.5 % (0.0-1.0); Eosinophils Absolute Auto 0.22 K/mm3 (0.02-0.50); Eosinophils Percent Auto 3.4 % (1.0-6.0); Hematocrit 41.8 % (35.0-49.0); Hemoglobin 14.1 g/dL (12.0-15.0); Immature Granulocyte Absolute 0.02 K/mm3 (0.00-0.00); Immature Granulocyte Percent A 0.3 % (0.0-0.0); Lymphocytes Absolute Auto 1.54 K/mm3 (1.10-4.50); Lymphocytes Percent Auto 23.8 % (18.0-42.0); Mean Corpuscular HGB Conc 33.7 g/dL (32.0-36.0); Mean Corpuscular Hemoglobin 30.9 pg (27.0-31.0); Mean Corpuscular Volume 91.5 fL (78.0-102.0); Mean Platelet Volume 9.6 fl (9.2-11.8); Monocytes Percent Auto 7.7 % (2.0-11.0); Neutrophils Absolute Auto 4.2 K/mm3 (1.7-7.2); Neutrophils Percent Auto 64.3 % (50.0-70.0); Platelet Count Result 365 K/mm3 (150-420); Red Blood Count 4.57 M/mm3 (4.20-5.40); Red Cell Distribution Width 13.4 % (11.6-14.4); White Blood Count 6.5 K/mm3 (4.8-10.8)
[2022-08-07 11:07] LABS: Appearance Urine Cloudy (Clear); Bilirubin Urine Negative (Negative); Blood Urine 3+ (Negative); Glucose Urine UA Negative (Negative); Ketones Urine Negative (Negative); Leukocyte Esterase Ur Negative LEU/UL (Negative); Nitrate Urine Negative (Negative); Protein Urine Trace (Negative); Specific Grav Ur >= 1.030 (1.010-1.020); Urobilinogen Urine 0.2 mg/dL (0.2-1.0)
[2022-08-07 11:12] LABS: Add Urine Microscopic? YES; Color Urine Light Yellow (Yellow)
[2022-08-07 11:13] LABS: Bacteria Urine 3+ /hpf; Squamous Epithelial Cell Urine Moderate /hpf (Few)
[2022-08-07 12:17] LABS: Pregnancy On Board Control Positive; Urine Pregnancy Test Negative
[2022-08-07 12:26] LABS: Alanine Aminotransferase 108 U/L (14-59); Albumin Level 3.6 g/dL (3.4-5.0); Alkaline Phosphatase 57 U/L (46-116); Amylase 39 U/L (25-115); Anion Gap 11 mmol/L (8-16); Aspartate Amino Transferase 78 U/L (15-37); Bilirubin,Total 0.4 mg/dL (0.00-1.00); Blood Urea Nitrogen 14 mg/dL (7-18); Calcium 8.6 mg/dL (8.5-10.1); Carbon Dioxide 23 mmol/L (21-32); Chloride 106 mmol/L (98-108); Estimated Glomerular Filt Rate > 60; Glucose 133 mg/dL (70-99); Lipase 169 U/L (73-393); Osmolality Calculated 292 mOsm/kg (285-295); Potassium 4.2 mmol/L (3.5-5.1); Sodium 140 mmol/L (136-145); Total Protein 7.1 g/dL (6.4-8.2)
== END 2022-08-07 10:29 | disposition home or self-care (01) ==
LOC: CHSLAB 10:30
PROVIDERS: PCP Family Medicine; Visit Provider Family Medicine
DX: R10.12 Left upper quadrant pain (principal)
CPT/HCPCS: 36415; 80053; 81001; 81025; 82150; 83690; 85025; 87086; 87088

== ENCOUNTER 2022-10-28 10:45 | Outpatient (CLI) | payer OTHER, SELFPAY ==
--- NOTE | ~2022-10-28 | XR_ITS ---
XR hand LT min 3V DATE: 10/28/2022 11:16 INDICATION: Swelling in posterior third metacarpal after a pop TECHNIQUE: 3 views of left hand COMPARISON: 06/26/2016 left hand FINDINGS: No fracture or dislocation, periosteal reaction or bone destruction, erosive change or sign ificant joint space narrowing. IMPRESSION: Negative Reviewed, dictated and finalized at location B. ION GANG IMPRESSION: Negative
[2022-10-28 11:10] LABS: Basophils Absolute Auto 0.03 K/mm3 (0.00-0.10); Basophils Percent Auto 0.5 % (0.0-1.0); Eosinophils Absolute Auto 0.23 K/mm3 (0.02-0.50); Eosinophils Percent Auto 3.8 % (1.0-6.0); Hematocrit 40.4 % (35.0-49.0); Hemoglobin 13.6 g/dL (12.0-15.0); Immature Granulocyte Absolute 0.04 K/mm3 (0.00-0.00); Immature Granulocyte Percent A 0.7 % (0.0-0.0); Lymphocytes Absolute Auto 1.29 K/mm3 (1.10-4.50); Mean Corpuscular HGB Conc 33.7 g/dL (32.0-36.0); Mean Corpuscular Hemoglobin 30.6 pg (27.0-31.0); Monocytes Absolute Auto 0.43 K/mm3 (0.10-0.90); Neutrophils Absolute Auto 4.1 K/mm3 (1.7-7.2); Platelet Count Result 358 K/mm3 (150-420); Red Blood Count 4.44 M/mm3 (4.20-5.40); Red Cell Distribution Width 13.1 % (11.6-14.4); White Blood Count 6.1 K/mm3 (4.8-10.8)
[2022-10-28 11:13] LABS: Add Urine Microscopic? YES; Bilirubin Urine Negative (Negative); Blood Urine 3+ (Negative); Color Urine Light Yellow (Yellow); Glucose Urine UA Negative (Negative); Ketones Urine Negative (Negative); Leukocyte Esterase Ur Negative (Negative); Nitrate Urine Negative (Negative); Protein Urine Negative (Negative); Specific Grav Ur >= 1.030 (1.010-1.020); Urobilinogen Urine 0.2 mg/dL (0.2-1.0); pH Urine 5.5 (5.0-8.0)
[2022-10-28 11:20] LABS: Appearance Urine Slightly Cloudy (Clear); Bacteria Urine 2+ /hpf; Squamous Epithelial Cell Urine Many /hpf (Few); WBC Urine None seen /hpf (0-3)
[2022-10-28 11:27] LABS: Creatinine Urine 107.56 mg/dL (40-278); MALB Creatinine Ratio 19.4 mg/g (0-30); Microalbumin Urine Random 20.9 mg/L
[2022-10-28 12:00] LABS: Alanine Aminotransferase 95 U/L (14-59); Albumin Level 3.3 g/dL (3.4-5.0); Alkaline Phosphatase 64 U/L (46-116); Anion Gap 10 mmol/L (8-16); Aspartate Amino Transferase 79 U/L (15-37); Bilirubin,Total 0.3 mg/dL (0.00-1.00); Blood Urea Nitrogen 12 mg/dL (7-18); Calcium 8.1 mg/dL (8.5-10.1); Carbon Dioxide 22 mmol/L (21-32); Chloride 105 mmol/L (98-108); Estimated Glomerular Filt Rate > 60; Free T4 Free Thyroxine 0.96 ng/dL (0.76-1.46); Glucose 227 mg/dL (70-99); Osmolality Calculated 290 mOsm/kg (285-295); Sodium 137 mmol/L (136-145); Thyroid Stimulating Hormone 2.73 uIU/mL (0.36-3.74); Total Protein 6.8 g/dL (6.4-8.2)
[2022-10-28 16:38] LABS: Hemoglobin A1C 6.4 % (<5.7)
== END 2022-10-28 10:46 | disposition home or self-care (01) ==
PROVIDERS: PCP Family Medicine; Visit Provider Family Medicine
DX: I10 Essential (primary) hypertension (principal); R94.6 Abnormal results of thyroid function studies; R22.32 Localized swelling, mass and lump, left upper limb
CPT/HCPCS: 36415; 73130; 80053; 81001; 82043; 83036; 84439; 84443; 85025

== ENCOUNTER 2022-12-21 19:45 | Outpatient (CLI) | payer OTHER, SELFPAY ==
--- NOTE | 2022-12-27 13:44 | WPDSLEEPSTUD ---
Sleep Study Date of Study: 12/21/22 Ordering Provider: Kennedy Rodriguez MD Interpreting Physician: Radha Acevedo MD Sleep Study Type: Split Polysomnogram Height: 1.66 m Weight: 197.313 kg Body Mass Index: 71.2 Neck Circumference (inches): 24 Currie: 16 Reason for Sleep Study Hypersomnolence, constant fatigue Sleep History Cayla Angulo is a 27-year-old woman who has constant fatigue and wants to sleep all day. She frequently snores quite loudly. She does not awaken from sleep feeling short of breath or awaken at night with heart for an symptoms, belching or coughing. She frequently has trouble sleeping with a cold. She does not wake up gasping for breath at night or having breathing problems at night reported to her by others. She frequently sweats excessively at night. She does not notice her heart pounding or beating irregularly at night. She does not fall asleep during the day involuntarily or while driving however she does sleep often in the day. She does not have loss of muscle tone with strong emotion. She does not have daytime difficulties due to excessive sleepiness. She does not have loss of muscle tone with strong emotion or have daytime difficulties due to excessive sleepiness. She does not feel paralyzed on waking or falling asleep. She frequently has vivid dreamlike scenes on waking or falling asleep. She does not feel afraid to go to sleep. She denies having nightmares. She rarely remembers her dreams. She frequently has racing thoughts. She rarely feels sad or depressed. She frequently feels anxious. She does not have muscular tension. She frequently notices parts of her body jerking. She does not kick at night however she frequently has crawling aching feelings in her legs. She does not have any kind of leg pain at night. She denies having morning jaw pain. She denies grinding her teeth during sleep. She is not bothered by pain during the day or awakened by pain at night. She does not wake up feeling stiff in the morning. She frequently wakes up with sore achy muscles. She does not wake up with pain in the neck and spine. Normal bedtime is 10:30 p.m., falling asleep within 1 hour, waking up 2-3 times at night. While awake, she will watch television or play a game on her telephone. It takes her an hour to return to sleep. She estimates getting 6 hours of sleep most nights. Her weekend schedule is the same. She does not take naps in the afternoon or evening. A short nap lasting 10 or 15 minutes is not refreshing. Habits: Never smoked tobacco. Caffeine daily. No alcohol or recreational substances. [facility] Past Medical History Medical History (Updated 12/27/22 @ 14:11 by Radha Acevedo MD) Arthritis Bipolar 1 disorder Depression Dyslipidemia GERD (gastroesophageal reflux disease) Hypertension Surgical History Surgical History History of ear surgery S/P tonsillectomy Status post cholecystectomy Family History Family History Other Pulmonary embolism Social History Social History Smoking status: Never smoker Alcohol intake: never Substance use: never Living arrangements: with family Medications Home Medications Medication Instructions Recorded Confirmed Type lurasidone 80 mg tablet (Latuda) 80 mg PO DAILY 01/10/20 04/22/22 History oxcarbazepine 300 mg tablet 300 mg PO BID 01/10/20 04/22/22 History famotidine 20 mg tablet 20 mg PO DAILY 08/15/21 04/22/22 History fluoxetine 20 mg capsule 20 mg PO DAILY 08/15/21 04/22/22 History hydrochlorothiazide 25 mg tablet 25 mg PO DAILY 08/15/21 04/22/22 History metoprolol succinate 50 mg 50 mg PO DAILY 08/15/21 04/22/22 History tablet,extended release 24 hr spironolactone 50 mg tablet 50 mg PO DAILY 08/15/21 04/22/22 History ondansetron 4 mg disintegrat
[2022-12-27 14:31] VITALS: BMI 71.2
== END 2022-12-22 06:54 | disposition home or self-care (01) ==
PROVIDERS: PCP Family Medicine; Visit Provider Family Medicine
DX: G47.33 Obstructive sleep apnea (adult) (pediatric) (principal); G47.30 Sleep apnea, unspecified; Z68.45 Body mass index [BMI] 70 or greater, adult
CPT/HCPCS: 95811

== ENCOUNTER 2023-02-10 10:47 | Outpatient (CLI) | payer OTHER, SELFPAY ==
[2023-02-10 11:03] LABS: Basophils Absolute Auto 0.04 K/mm3 (0.00-0.10); Basophils Percent Auto 0.6 % (0.0-1.0); Eosinophils Absolute Auto 0.24 K/mm3 (0.02-0.50); Eosinophils Percent Auto 3.7 % (1.0-6.0); Hematocrit 42.4 % (35.0-49.0); Hemoglobin 14.1 g/dL (12.0-15.0); Immature Granulocyte Absolute 0.03 K/mm3 (0.00-0.00); Immature Granulocyte Percent A 0.5 % (0.0-0.0); Lymphocytes Absolute Auto 1.49 K/mm3 (1.10-4.50); Lymphocytes Percent Auto 22.9 % (18.0-42.0); Mean Corpuscular HGB Conc 33.3 g/dL (32.0-36.0); Mean Corpuscular Hemoglobin 30.5 pg (27.0-31.0); Mean Corpuscular Volume 91.6 fL (78.0-102.0); Mean Platelet Volume 9.8 fl (9.2-11.8); Monocytes Absolute Auto 0.66 K/mm3 (0.10-0.90); Monocytes Percent Auto 10.2 % (2.0-11.0); Neutrophils Percent Auto 62.1 % (50.0-70.0); Platelet Count Result 354 K/mm3 (150-420); Red Blood Count 4.63 M/mm3 (4.20-5.40); Red Cell Distribution Width 13.3 % (11.6-14.4); White Blood Count 6.5 K/mm3 (4.8-10.8)
[2023-02-10 11:27] LABS: Hemoglobin A1C 6.5 % (<5.7)
[2023-02-10 11:55] LABS: Alanine Aminotransferase 117 U/L (14-59); Albumin Level 3.3 g/dL (3.4-5.0); Alkaline Phosphatase 64 U/L (46-116); Anion Gap 9 mmol/L (8-16); Aspartate Amino Transferase 63 U/L (15-37); Bilirubin,Total 0.3 mg/dL (0.00-1.00); Blood Urea Nitrogen 16 mg/dL (7-18); Calcium 8.5 mg/dL (8.5-10.1); Carbon Dioxide 25 mmol/L (21-32); Chloride 104 mmol/L (98-108); Estimated Glomerular Filt Rate > 60; Glucose 144 mg/dL (70-99); Osmolality Calculated 290 mOsm/kg (285-295); Potassium 4.1 mmol/L (3.5-5.1); Sodium 138 mmol/L (136-145); Total Protein 7.2 g/dL (6.4-8.2)
== END 2023-02-10 10:48 | disposition home or self-care (01) ==
LOC: CHSLAB 10:49
PROVIDERS: PCP Family Medicine; Visit Provider Family Medicine
DX: I10 Essential (primary) hypertension (principal); R73.9 Hyperglycemia, unspecified
CPT/HCPCS: 36415; 80053; 83036; 85025

== ENCOUNTER 2023-04-07 13:35 | Emergency (ER) | payer OTHER, SELFPAY ==
--- NOTE | ~2023-04-07 | US_ITS ---
EXAMINATION:US venous doppler LE LT INDICATION:Left calf swelling and pain TECHNIQUE: Multiple grayscale, color flow and Doppler images of the left lower extremity deep venous systems were obtained and reviewed. COMPARISON:No prior studies for comparison. FINDINGS: The common femoral, superficial femoral and popliteal veins demonstrate normal respiratory variation, augmentation and compressibility. Color flow is also seen within the posterior tibial, pe roneal, greater saphenous and profunda veins. There is a Sofia's cyst of the left popliteal fossa cyn suring 1.9 cm. IMPRESSION: 1: No lower extremity deep venous thrombosis. Reviewed, dictated and finalized at location L.
== END 2023-04-07 15:10 | disposition home or self-care (01) ==
LOC: CHSED 16:16
PROVIDERS: Emergency Provider Internal Medicine Critical Care Medicine; PCP Family Medicine
DX: M79.662 Pain in left lower leg (principal); E11.9 Type 2 diabetes mellitus without complications
CPT/HCPCS: 93971; 99284

== ENCOUNTER 2023-11-01 10:41 | Outpatient (CLI) | payer OTHER, SELFPAY ==
[2023-11-01 10:54] LABS: Basophils Absolute Auto 0.05 K/mm3 (0.00-0.10); Basophils Percent Auto 0.7 % (0.0-1.0); Eosinophils Absolute Auto 0.26 K/mm3 (0.02-0.50); Eosinophils Percent Auto 3.8 % (1.0-6.0); Hematocrit 44.2 % (35.0-49.0); Hemoglobin 14.8 g/dL (12.0-15.0); Immature Granulocyte Absolute 0.03 K/mm3 (0.00-0.00); Immature Granulocyte Percent A 0.4 % (0.0-0.0); Lymphocytes Absolute Auto 1.65 K/mm3 (1.10-4.50); Mean Corpuscular HGB Conc 33.5 g/dL (32.0-36.0); Mean Corpuscular Hemoglobin 30.6 pg (27.0-31.0); Mean Corpuscular Volume 91.3 fL (78.0-102.0); Mean Platelet Volume 9.6 fl (9.2-11.8); Monocytes Absolute Auto 0.58 K/mm3 (0.10-0.90); Monocytes Percent Auto 8.4 % (2.0-11.0); Neutrophils Absolute Auto 4.3 K/mm3 (1.7-7.2); Neutrophils Percent Auto 62.7 % (50.0-70.0); Platelet Count Result 413 K/mm3 (150-420); Red Blood Count 4.84 M/mm3 (4.20-5.40); Red Cell Distribution Width 13.2 % (11.6-14.4); White Blood Count 6.9 K/mm3 (4.8-10.8)
[2023-11-01 11:03] LABS: Hemoglobin A1C 5.7 % (<5.7)
[2023-11-01 11:57] LABS: Alanine Aminotransferase 68 U/L (14-59); Albumin Level 3.7 g/dL (3.4-5.0); Alkaline Phosphatase 47 U/L (46-116); Anion Gap 12 mmol/L (8-16); Aspartate Amino Transferase 31 U/L (15-37); Bilirubin,Total 0.4 mg/dL (0.00-1.00); Blood Urea Nitrogen 13 mg/dL (7-18); Calcium 9.2 mg/dL (8.5-10.1); Carbon Dioxide 26 mmol/L (21-32); Chloride 102 mmol/L (98-108); Estimated Glomerular Filt Rate > 60; Glucose 131 mg/dL (70-99); Osmolality Calculated 292 mOsm/kg (285-295); Potassium 4.1 mmol/L (3.5-5.1); Sodium 140 mmol/L (136-145); Total Protein 7.6 g/dL (6.4-8.2)
== END 2023-11-01 10:42 | disposition home or self-care (01) ==
LOC: CHSLAB 10:43
PROVIDERS: PCP Family Medicine; Visit Provider Family Medicine
DX: E11.9 Type 2 diabetes mellitus without complications (principal)
CPT/HCPCS: 36415; 80053; 83036; 85025

== ENCOUNTER 2023-12-07 13:47 | Outpatient (CLI) | payer OTHER, SELFPAY ==
--- NOTE | ~2023-12-07 | XR_ITS ---
Lumbosacral Spine: AP and lateral views Clinical History: Pain Findings: The normal lordotic curve is maintained. The vertebral bodies and posterior elements are i ntact. The intervertebral disc spaces are preserved. The sacroiliac joints are normally outlined. Impression: No significant abnormality. Reviewed, dictated and finalized at [facility]. ATRIC DENTIST Impression: No significant abnormality.
== END 2023-12-07 13:48 | disposition home or self-care (01) ==
LOC: CHSIMG 13:49
PROVIDERS: PCP Family Medicine; Visit Provider Family Medicine
DX: R20.0 Anesthesia of skin (principal)
CPT/HCPCS: 72100

== ENCOUNTER 2024-04-15 09:46 | Outpatient (CLI) | payer OTHER, SELFPAY ==
[2024-04-15 10:22] LABS: Basophils Absolute Auto 0.03 K/mm3 (0.00-0.10); Basophils Percent Auto 0.6 % (0.0-1.0); Eosinophils Percent Auto 3.8 % (1.0-6.0); Hematocrit 40.1 % (35.0-49.0); Hemoglobin 13.6 g/dL (12.0-15.0); Immature Granulocyte Absolute 0.02 K/mm3 (0.00-0.00); Immature Granulocyte Percent A 0.4 % (0.0-0.0); Lymphocytes Absolute Auto 1.26 K/mm3 (1.10-4.50); Lymphocytes Percent Auto 23.7 % (18.0-42.0); Mean Corpuscular HGB Conc 33.9 g/dL (32-36); Mean Corpuscular Hemoglobin 30.6 pg (27.0-31.0); Mean Corpuscular Volume 90.1 fL (78.0-102.0); Mean Platelet Volume 9.9 fl (9.2-11.8); Monocytes Absolute Auto 0.43 K/mm3 (0.10-0.90); Monocytes Percent Auto 8.1 % (2.0-11.0); Neutrophils Absolute Auto 3.37 K/mm3 (1.70-7.20); Neutrophils Percent Auto 63.4 % (50.0-70.0); Platelet Count Result 304 K/mm3 (150-420); Red Blood Count 4.45 M/mm3 (4.20-5.40); Red Cell Distribution Width 13.6 % (11.6-14.4); White Blood Count 5.3 K/mm3 (4.8-10.8)
[2024-04-15 10:32] LABS: Creatinine Urine 212.48 mg/dL (40-278); MALB Creatinine Ratio 25.5 mg/g (0-30); Microalbumin Urine Random 54.2 mg/L
[2024-04-15 10:36] LABS: Hemoglobin A1C 5.9 % (<5.7)
[2024-04-15 10:41] LABS: Alanine Aminotransferase 86 U/L (14-59); Albumin Level 3.4 g/dL (3.4-5.0); Alkaline Phosphatase 37 U/L (46-116); Anion Gap 10 mmol/L (4-12); Aspartate Amino Transferase 49 U/L (15-37); Bilirubin,Total 0.4 mg/dL (0.00-1.00); Blood Urea Nitrogen 12 mg/dL (7-18); Calcium 8.2 mg/dL (8.5-10.1); Carbon Dioxide 23 mmol/L (21-32); Chloride 105 mmol/L (98-108); Cholesterol 208 mg/dL (0-200); Estimated Glomerular Filt Rate > 60; Glucose 115 mg/dL (70-99); HDL Direct 44 mg/dL (40-60); LDL Cholesterol Calculated 123 mg/dL (<130); Osmolality Calculated 286 mOsm/kg (285-295); Potassium 3.4 mmol/L (3.5-5.1); Sodium 138 mmol/L (136-145); Thyroid Stimulating Hormone 6.12 uIU/mL (0.36-3.74); Triglycerides 203 mg/dL (0-150)
[2024-04-15 17:55] LABS: Bilirubin Urine Negative (Negative); Blood Urine 3+ (Negative); Glucose Urine UA Negative (Negative); Ketones Urine Negative (Negative); Leukocyte Esterase Ur Negative (Negative); Nitrate Urine Positive (Negative); Protein Urine 1+ (Negative); Specific Grav Ur >= 1.030 (1.010-1.020); Urobilinogen Urine 0.2 mg/dL (0.2-1.0); pH Urine 5.5 (5.0-8.0)
[2024-04-15 18:28] LABS: Add Urine Microscopic? YES; Appearance Urine Sl Cloudy (Clear); Bacteria Urine 4+ /hpf; Color Urine Light Brown (Yellow); RBC Urine >100 /hpf (0-2); Squamous Epithelial Cell Urine Many /hpf (Few); WBC Urine 0-3 /hpf (0-3)
[2024-04-17 10:00] LABS: Free T4 Free Thyroxine 0.83 ng/dL (0.76-1.46)
== END 2024-04-15 09:47 | disposition home or self-care (01) ==
PROVIDERS: PCP Family Medicine; Visit Provider Family Medicine
DX: E11.9 Type 2 diabetes mellitus without complications (principal); R94.6 Abnormal results of thyroid function studies
CPT/HCPCS: 36415; 80053; 80061; 81001; 82043; 83036; 84439; 84443; 85025; 87086

== ENCOUNTER 2024-04-25 11:43 | Outpatient (CLI) | payer OTHER, MEDICAID, SELFPAY ==
[2024-04-25 12:52] LABS: Alanine Aminotransferase 86 U/L (14-59); Albumin Level 3.7 g/dL (3.4-5.0); Alkaline Phosphatase 50 U/L (46-116); Anion Gap 12 mmol/L (4-12); Aspartate Amino Transferase 54 U/L (15-37); Bilirubin,Total 0.5 mg/dL (0.00-1.00); Blood Urea Nitrogen 14 mg/dL (7-18); Calcium 8.9 mg/dL (8.5-10.1); Carbon Dioxide 25 mmol/L (21-32); Chloride 102 mmol/L (98-108); Estimated Glomerular Filt Rate > 60; Glucose 112 mg/dL (70-99); Osmolality Calculated 289 mOsm/kg (285-295); Potassium 3.8 mmol/L (3.5-5.1); Sodium 139 mmol/L (136-145); Total Protein 7.3 g/dL (6.4-8.2)
== END 2024-04-25 11:44 | disposition home or self-care (01) ==
LOC: CHSLAB 11:49
PROVIDERS: PCP Family Medicine; Visit Provider Family Medicine
DX: R79.89 Other specified abnormal findings of blood chemistry (principal)
CPT/HCPCS: 36415; 80053

== ENCOUNTER 2024-11-24 10:04 | Outpatient (CLI) | payer MEDICAID, SELFPAY ==
--- NOTE | ~2024-11-24 | CT_ITS ---
EXAMINATION:CT diagnostic chest w con DATE: 11/24/2024 11:07 INDICATION: Left lower lobe pulmonary nodule. TECHNIQUE: Computed tomography (CT) of the chest was performed with 75 mL Omnipaque 350 intravenous c ontrast. Automated exposure control and iterative reconstruction technique were employed. The dose-le ngth product (DLP) was 949.51 mGy-cm. COMPARISON: CT abdomen and pelvis 04/11/2022 FINDINGS: There is a 5 mm nodule in left lower lobe. There is a 4 mm nodule in right upper lobe. No p leural effusion. The heart size is normal. No pericardial effusion. The heart size is normal. No jose manuel cardial effusion. There is diffuse hepatic steatosis. There are changes of cholecystectomy. There is mild thoracic spondylosis. There is mild chronic anterior wedging of T12 vertebral body. IMPRESSION: 1. Small pulmonary nodules, likely benign. 2. Diffuse hepatic steatosis. Reviewed, dictated and finalized at location A. LITY SECURITY OFFICER
--- OUTSIDE RECORDS SUMMARY | 2024-11-24 10:24 | XMS_ITS | Continuity of Care Document ---
Author Organization [facility] [employer] Address [address] [place] [address] Phone Care Team Providers Care Refrigerator Mover Name Role Phone Tracey CASTILLO Sonya Unavailable [...] Diagnoses Date Provider Providers Copied on Encounter [facility] [employer], [address], [place], [place], [id number], tel:[phone] [facility] No Information 8 Tracey [address]. [address], [place], [address] , [place]. tel:[phone] Referring Provider: Ashley Fink, [facility] [place], [address]. tel:[phone] Interactive Psychiatric Eval [facility] [employer], [address], [place], [place], [id number], [place] tel:[phone] [facility] Bipolar disorder, unspecifiedPersona lity disorder, unspecified 8 Tracey Hassan. [address], [place], [id number] , [place]. tel:[phone] Referring Provider: Ashley Fink, [facility] [place], [address]. tel:[phone] Family History Family Member Type Diagnosis Age At Onset No Information Payers Payer name Insurance type Covered democrat ID Marya jorge(s) [place] Medicaid MC [id number] Social History Type Description Quantity Date Captured [...]
--- OUTSIDE RECORDS SUMMARY | 2024-11-24 10:24 | XMS_ITS | Clinical Summary ---
Author Organization [facility] Address [address] [place] [address] Phone Care Team Providers Care Dry Man Name Role Phone Unavailable Primary Care Provider Unavailabl e Allergies No known active allergies Encounters Date Type Department Care Team Description 11/16/2024 External Device Data [facility]STRACTION Provider, Abstract 11/15/2024 External Device Data [facility]STRA[facility] Provider, Abstract 11/14/2024 External Device Data [facility]STRACTION Provider, Abstract 11/07/2024 External Device Data [facility]STRA[facility] Provider, Abstract 09/26/2024 External Device Data [facility] ABSTRACTION Provider, Abstract from Last 3 Months Social History Tobacco Use Types Packs/Day Years Used Date Smoking Tobacco: Never Assessed Feeling Safe Answer Date Recorded Are you in a relationship wi th someone who hurts you emotionally and/or physically? No 01/15/2024 Comments Unknown Sex and Gender Information Value Date Recorded Sex Assigned at Not on file Legal Sex Female 11:13 PM CDT Gender Identity Not on file Sexual Orientation Not on file Last Filed Vital Signs Vital Sign Reading Time Taken Comments Blood Pressure 147/53 01/16/2024 1:45 AM CDT Pulse 75 01/16/2024 1:45 AM CDT Temperature 36.6 ??C (97.8 ??F) 01/15/2024 10:33 PM C DT Respiratory Rate 20 01/15/2024 8:59 PM CDT Oxygen Saturation 96% 01/16/2024 1:45 AM CDT Inhaled Oxygen Concentration - - Weight 201.9 kg (445 lb) 01/15/2024 8:59 PM CDT Height 165.1 cm (5' 5 ) 01/15/2024 8:59 PM CDT Body Mass Index 74.05 01/15/2024 8:59 PM CDT Plan of Treatment Health Maintenance Due Date Last Done Comments HEPATITIS B VACCINES (1 of 3 - 19+ 3-dose series) 2014 CERVICAL CANCER SCREENING 2016 INFLUENZA VACCINE (#1) 2024 , 01/13/2017, 09/20/2016 DTAP/TDAP/TD VACCINES (2 - T d or Tdap) 03/21/2025 03/21/2015 HPV VACCINES Aged Out No longer eligi ble based on patient's age to complete this topic PNEUMOCOCCAL VACCINE 0-64 YEARS Aged Out No longer eligible b ased on patient's age to complete this topic [place] [facility] INDIVIDUAL EXCHANGE [id number]
[2024-11-24 10:45] LABS: Estimated Glomerular Filt Rate > 60
== END 2024-11-24 10:05 | disposition home or self-care (01) ==
PROVIDERS: PCP Family Medicine; Visit Provider Family Medicine
DX: R91.8 Other nonspecific abnormal finding of lung field (principal); K76.0 Fatty (change of) liver, not elsewhere classified
CPT/HCPCS: 71260; Q9967

== ENCOUNTER 2025-03-12 12:06 | Outpatient (CLI) | payer OTHER, SELFPAY ==
--- NOTE | ~2025-03-12 | XR_ITS ---
HISTORY: Swelling, fell down some stairs last night COMPARISON: None TECHNIQUE: 3 views of the right ankle were performed FINDINGS: No acute fracture or dislocation. Medial soft tissue swelling. The ankle mortise is preserved. Bone mineralization is age-appropriate. Large calcaneal spur is present. Ossification of the insertion of the Achilles tendon is noted. IMPRESSION: Medial soft tissue swelling with degenerative disease, without acute fracture. Reviewed, dictated and finalized at location A. IMPRESSION: Medial soft tissue swelling with degenerative disease, without acu te fracture.
--- NOTE | ~2025-03-12 | XR_ITS ---
HISTORY: RT foot swelling, 1st digit pain, fell down some stairs COMPARISON: None TECHNIQUE: 3 views of the right foot were performed FINDINGS: No acute fracture or dislocation is appreciated. Significant soft tissue swelling is identified within the forefoot The base of the fifth metatarsal is intact. A large calcaneal spur is noted. Ossification of the insertion of the Achilles tendon is noted. IMPRESSION: Degenerative disease, with significant soft tissue swelling, and without acute fracture. Reviewed, dictated and finalized at location A. IMPRESSION: Degenerative disease, with significant soft tissue swelling, and w ithout acute fracture.
--- OUTSIDE RECORDS SUMMARY | 2025-03-12 12:13 | XMS_ITS | Clinical Summary ---
Author Organization [facility] Address [address] [place] [phone] Phone Care Team Providers Care Remanufacturing Technician Name Role Phone Unavailable Primary Care Provider Unavailabl e Allergies No known active allergies Encounters Date Type Department Care Team Description 01/02/2025 External Device Data [facility] ABSTRACTION Provider, Abstract 01/02/2025 External Device Data [facility] ABSTRACTION Provider, Abstract 01/02/2025 External Device Data [facility] ABSTRACTION Provider, Abstract 01/01/2025 External Device Data [facility] ABSTRACTION Provider, Abstract 01/01/2025 External Device Data [facility] ABSTRACTION Provider, Abstract 12/19/2024 External Device Data [facility] ABSTRACTION Provider, Abstract [...] 75 01/16/2024 1:45 AM CDT Temperature 36.6 C (97.8 F) 01/15/2024 10:33 PM CDT Respiratory Rate 20 01/15/2024 8:59 PM CDT [...] 3-dose series) 2014 CERVICAL CANCER SCREENING 2016 HPV/Cotest (21-29) 2016 PAP SMEAR 2016 INFLUENZA VACCINE (#1) 2024 8, 01/13/2017, 09/20/2016 DTAP/TDAP/TD VACCINES (2 - Td or Tdap) 03/21/2025 03/21/2015 HPV VACCINES Aged Out No longer eligi ble based on patient's age to complete this topic [place] [facility] INDIVIDUAL EXCHANGE [id number]
--- OUTSIDE RECORDS SUMMARY | 2025-03-12 12:13 | XMS_ITS | Continuity of Care Document ---
Author Organization [facility] [employer] Address [address] [place] [address] Phone Care Team Providers Care Defence Force Member Other Ranks Name Role Phone Tracey CASTILLO Sonya Unavailable [...] Diagnoses Date Provider Providers Copied on Encounter [facility] [employer], [address], [place], [place], [id number], tel:[phone] [facility] No Information 8 Tracey Hassan. [address], [place], [id number] , [place]. tel:[phone] Referring Provider: Ashley Fink, [facility] [place], [address]. tel:[phone] Interactive Psychiatric Eval [facility] [employer], [address], [place], [place], [id number], [place] tel:[phone] [facility] Bipolar disorder, unspecifiedPersona lity disorder, unspecified 8 Tracey Hassan. [address], [place], [address] , [place]. tel:[phone] Referring Provider: Ashley Fink, [facility] [place], [address]. tel:[phone] Family History Family Member Type Diagnosis Age At Onset No Information Payers Payer name Insurance type Covered constitution party ID Marya jorge(s) [place] Medicaid MC [id number] Social History Type Description Quantity Date Captured [...]
== END 2025-03-12 12:07 | disposition home or self-care (01) ==
LOC: CHSIMG 12:07
PROVIDERS: PCP Family Medicine; Visit Provider Family Medicine
DX: M79.671 Pain in right foot (principal); M79.89 Other specified soft tissue disorders
CPT/HCPCS: 73610; 73630

== ENCOUNTER 2025-05-08 10:18 | Outpatient (CLI) | payer OTHER, SELFPAY ==
--- OUTSIDE RECORDS SUMMARY | 2025-05-08 10:33 | XMS_ITS | Continuity of Care Document ---
Author Organization [facility] [employer] [facility] [employer] Address [address] [place] [address] Phone Care Team Providers Care Deflash And Wash Operator Name Role Phone Tracey CASTILLO Sonya Unavailable [...] Diagnoses Date Provider Providers Copied on Encounter [facility] [employer], [address], [place], [place], [id number], tel:[phone] [facility] No Information 8 Tracey Hassan. [address], [place], [id number] , [place]. tel:[phone] Referring Provider: Ashley Fink, [facility] [place], [address]. tel:[phone] Interactive Psychiatric Eval [facility] [employer], [address], [place], [place], [address], [place] tel:[phone] [facility] Bipolar disorder, unspecifiedPersona lity disorder, unspecified 8 Tracey Hassan. [address], [place], [address] , [place]. tel:[phone] Referring Provider: Ashley Fink, [facility] [place], [address]. tel:[phone] Family History Family Member Type Diagnosis Age At Onset No Information Payers Payer name Insurance type Covered republican ID Marya jorge(s) [place] Medicaid MC [id number] Social History Type Description Quantity Date Captured [...]
--- OUTSIDE RECORDS SUMMARY | 2025-05-08 10:33 | XMS_ITS | Clinical Summary ---
Author Organization [facility] Address [address] [place] [address] Phone Care Team Providers Care Steam Hammer Operator Name Role Phone Unavailable Primary Care Provider Unavailabl e Allergies No known active allergies Social History Tobacco Use Types Packs/Day Years [...] 8:59 PM CDT Height 165.1 cm (5' 5) 01/15/2024 8:59 PM CDT Body Mass Index 74.05 01/15/2024 8:59 PM CDT Plan of Treatment Health Maintenance Due Date Last Done Comments HEPATITIS B VACCINES (1 of 3 - 19+ 3-dose series) 2014 HPV/Cotest (21-29) 2016 DTAP/TDAP/TD VACCINES (2 - Td or Tdap) 03/21/2025 03/21/2015 CERVICAL CANCER SCREENING 2025 HPV/Cotest (30-65) 2025 PAP SMEAR 2025 INFLUENZA VACCINE (#1) 2025 8, 01/13/2017, 09/20/2016 HPV VACCINES Aged Out No longer eligi ble based on patient's age to complete this topic Insurance [place] [facility] INDIVIDUAL EXCHANGE [id number]
[2025-05-08 10:35] LABS: Hematocrit 45.6 % (35.0-49.0); Hemoglobin 15.1 g/dL (12.0-15.0); Immature Granulocyte Percent A 0.4 % (0.0-0.0); Lymphocytes Absolute Auto 1.79 K/mm3 (1.10-4.50); Mean Corpuscular HGB Conc 33.1 g/dL (32-36); Mean Corpuscular Hemoglobin 30.3 pg (27.0-31.0); Mean Corpuscular Volume 91.4 fL (78.0-102.0); Nucleated Red Blood Cells Absolute Auto 0.00 K/mm3 (0.00-0.00); Nucleated Red Blood Cells Perc 0.0 % (0-0.0); Platelet Count Result 402 K/mm3 (150-420); Red Blood Count 4.99 M/mm3 (4.20-5.40); White Blood Count 7.6 K/mm3 (4.8-10.8)
[2025-05-08 10:37] LABS: Add Urine Microscopic? NO; Appearance Urine Clear (Clear); Glucose Urine UA Negative (Negative); Leukocyte Esterase Ur Negative LEU/UL (Negative); Nitrate Urine Negative (Negative); Specific Grav Ur >= 1.030 (1.010-1.020)
[2025-05-08 11:31] LABS: Alanine Aminotransferase 104 U/L (6-35); Albumin Level 4.3 g/dL (3.5-5.1); Alkaline Phosphatase 61 U/L (38-126); Amylase 54 U/L (30-110); Anion Gap 9 mmol/L (4-12); Aspartate Amino Transferase 90 U/L (14-36); Bilirubin,Total 0.7 mg/dL (0.2-1.3); Blood Urea Nitrogen 14 mg/dL (7-17); Calcium 8.9 mg/dL (8.4-10.2); Carbon Dioxide 22 mmol/L (22-30); Chloride 108 mmol/L (98-107); Estimated Glomerular Filt Rate > 60; Glucose 117 mg/dL (65-110); Lipase 136 U/L (23-300); Osmolality Calculated 289 mOsm/kg (285-295); Potassium 4.4 mmol/L (3.4-5.0); Sodium 139 mmol/L (137-145); Total Protein 7.4 g/dL (6.3-8.2)
== END 2025-05-08 10:19 | disposition home or self-care (01) ==
PROVIDERS: PCP Family Medicine; Visit Provider Family Medicine
DX: R11.0 Nausea (principal)
CPT/HCPCS: 36415; 80053; 81003; 82150; 83690; 85025

== ENCOUNTER 2025-05-15 08:12 | Outpatient (CLI) | payer OTHER, SELFPAY ==
--- NOTE | ~2025-05-15 | US_ITS ---
US abdomen complete EXAMINATION: US Abdomen Complete INDICATION: Elevated liver enzymes. PROCEDURE: Realtime High Resolution abdomen ultrasound. COMPARISON: No prior studies for comparison FINDINGS: Gallbladder surgically absent. Common bile duct measures 3 mm. Liver echotexture liver echotexture is increased, consistent with fatty infiltration.. Pancreas with in normal limits. Pancreatic tail is obscured by bowel gas. Spleen is enlarged measuring 14.4 cm. R enal echotexture is within normal limits bilaterally without hydronephrosis, contour deforming mass o r renal stone. Right kidney measures 12.1 cm. Left kidney measures 12.6 cm. Visualized aspects of the aorta and IVC are within normal limits. Portal vein is patent. No sonograph ic Pond's sign indicated by the technologist. IMPRESSION: 1: Splenomegaly. 2: Fatty infiltration of the liver. Reviewed, dictated and finalized at location A.
--- OUTSIDE RECORDS SUMMARY | 2025-05-15 08:17 | XMS_ITS | Continuity of Care Document ---
Author Organization [facility] [employer] Address [address] [place] [address] Phone Care Team Providers Care Larry Operator Name Role Phone Tracey CASTILLO Sonya [...] Diagnoses Date Provider Providers Copied on Encounter [facility] [employer], [address], [place], [place], [id number], tel:[phone] [facility] No Information 8 Tracey Hassan. [address], [place], [id number] , [place]. tel:[phone] Referring Provider: Ashley Fink, [facility] [place], [address]. tel:[phone] Interactive Psychiatric Eval [facility] [employer], [address], [place], [place], [id number], [place] tel:[phone] [facility] Bipolar disorder, unspecifiedPersona lity disorder, unspecified 8 Tracey Hassan. [address], [place], [id number] , [place]. tel:[phone] Referring Provider: Ashley Fink, [facility] [place], [address]. tel:[phone] Family History Family Member Type Diagnosis Age At Onset No Information Payers Payer name Insurance type Covered democrat ID Marya jorge(s) [place] Medicaid MC [id number] Social History Type Description Quantity Date Captured [...]
== END 2025-05-15 08:13 | disposition home or self-care (01) ==
LOC: CHSIMG 08:14
PROVIDERS: PCP Family Medicine; Visit Provider Family Medicine
DX: R74.01 Elevation of levels of liver transaminase levels (principal); R16.1 Splenomegaly, not elsewhere classified; K76.0 Fatty (change of) liver, not elsewhere classified
CPT/HCPCS: 76700

== ENCOUNTER 2025-06-12 14:06 | Outpatient (CLI) | payer OTHER, SELFPAY ==
--- OUTSIDE RECORDS SUMMARY | 2025-06-12 14:28 | XMS_ITS | Clinical Summary ---
Author Organization [facility] Address [address] [place] [phone] Phone Care Team Providers Care Trial Consultant Name Role Phone Unavailable Primary Care Provider Unavailabl e Allergies No known active allergies Social History Tobacco Use Types Packs/Day Years Used Date Smoking Tobacco: Never Assessed Comments Unknown Sex and Gender Information Value [...] Health Maintenance Due Date Last Done Comments HPV VACCINES (1 - 3-dose series) 2010 HEPATITIS B VACCINES (1 of 3 - 19+ 3-dose series) 2014 HPV/Cotest (21-29) 2016 DTAP/TDAP/TD VACCINES (2 - T d or Tdap) 03/21/2025 03/21/2015 CERVICAL CANCER SCREENING 2025 HPV/Cotest (30-65) 2025 PAP SMEAR 2025 INFLUENZA VACCINE (#1) 2025 8, 01/13/2017, 09/20/2016 Insurance [employer] [place] [facility] INDIVIDUAL EXCHANGE [id number]
[2025-06-12 14:55] LABS: INR 1.0; Prothrombin Time 10.7 Seconds (9.50-12.1)
[2025-06-12 15:32] LABS: Iron 82 ug/dL (37-170)
[2025-06-12 15:41] LABS: Percent Iron Saturation 29 % (20-50)
[2025-06-12 16:08] LABS: Ferritin 165.00 ng/mL (6.24-137)
[2025-06-13 16:08] LABS: ANA by IFA Rfx Titer/Pattern Negative (.)
== END 2025-06-12 14:07 | disposition home or self-care (01) ==
PROVIDERS: PCP Family Medicine; Visit Provider Nurse Practitioner Family
DX: K76.0 Fatty (change of) liver, not elsewhere classified (principal); R79.89 Other specified abnormal findings of blood chemistry
CPT/HCPCS: 36415; 82390; 82728; 83540; 83550; 85610; 86015; 86038; 86376; 86381

== ENCOUNTER 2025-08-21 08:05 | Outpatient (CLI) | payer OTHER, SELFPAY ==
--- OUTSIDE RECORDS SUMMARY | 2018-02-09 03:37 | XMS_ITS | Continuity of Care Document ---
Author Organization [facility] [employer] [employer] Address [address] [place] [address] Phone Care Team Providers Care Ironer Or Presser Name Role Phone Tracey CASTILLO Sonya Unavailable Unavailable Allergies, Adverse Reactions, Alerts Substance Reaction Status Criticality Fish Containing Products Active No Information Medications Medication Instructions Dosage Effective Dates (start - stop) Status Comments carbamazepine 200 mg tablet take 1 tablet by oral route every 12 hours 200 MG - Active citalopram 40 mg tablet take 1 tablet by oral route every day 40 MG - Active doxepin 10 mg capsule take 1 capsule by oral route every bedtime 10 MG - Active Latuda 40 mg tablet take 1 tablet by oral route every day with food (at least 350 calories) 40 MG - Active Trileptal 300 mg tablet take 1.5 tablet by oral route 2 times every day 1.5 tablet - Active risperidone 1 mg tablet take 0.5 tablet by oral route every day 0.5 MG - Active Latuda 20 mg tablet take 1 tablet by oral route every day with food (at least 350 calories) 20 MG - Active Lipitor 20 mg tablet take 1 tablet by oral route every day 20 MG - Active clonidine HCl 0.1 mg tablet take 1 tablet by oral route three times every day. - Active ferrous gluconate 324 mg (36 mg iron) tablet take one tablet by mouth daily. - Active hydrochlorothiazide 25 mg tablet take 1 tablet by oral route every day 25 MG - Active ranitidine 150 mg tablet take 1 tablet b y oral route 2 times every day - Active doxepin 10 mg capsule take 1 capsule by oral route every bedtime 10 MG - No Longer Active citalopram 40 mg tablet take 1 tablet by oral route every day 40 MG - No Longer Active Trileptal 300 mg tablet take 1 tablet by oral route 2 times every day 1 tablet - No Longer Active risperidone 1 mg tablet take 1 tablet by oral route every day 1 MG - No Longer Active carbamazepine 200 mg tablet take 1 tablet by oral route every 12 hours 200 MG - No Longer Active Procedures Procedure Date Interactive Psychiatric Eval Advance Directives Directive Yes / No Effective Date File Name No Information Encounters Encounter Description Practice Location Reason(s) For Visit Diagnoses Date Provider Providers Copied on Encounter [facility], [address], [place], [place], [id number], tel:[phone] [facility] No Information [address], [place], [id number] , [place]. tel:[phone] Referring Provider: Ashley Fink, [facility] [place], [address]. tel:[phone] Interactive Psychiatric Eval [facility] [employer], [address], [place], [place], [id number], [place] tel:[phone] [facility] Bipolar disorder, unspecifiedPersona lity disorder, unspecified [address], [place], [id number] , [place]. tel:[phone] Referring Provider: Ashley Fink, [facility] [place], [address]. tel:[phone] Family History Family Member Type Diagnosis Age At Onset No Information Payers Payer name Insurance type Covered green party ID Marya jorge(s) [place] Medicaid [id number] Social History Type Description Quantity Date Captured Comments Alcohol Use Details No Caffeine Use Details coffee 2 cups per day Tobacco Use Status No Information Smoking Status Never smoker Sex Female Sexual Orientation Don't Know Vital Signs Date / Time: Height Weight BMI Pulse Rate Blood Pressure Temperature Respiratory Rate Body Surface Area Head Circumference Head Circ. Percentile Wt./Anselmo. Percentile BMI percentile Pulse Ox Inhaled Ox 9:44 AM 70.00 in 148.778 kg (328.00 lbs) 47.0 6 kg/m eter (2) 73 /min 142/70 mm[Hg] 97.80 F 18 /min 97 % 21 % Chief Complaint And Reason For Visit No Information Reason For Referral Reason For Referral No Information History Of Present Illness Encounter Date Complaint History Of Prese nt Illness No Information Functional Status Date Functional Assessmen t Pain Score 0/10 Instructions Date Instruction Additional Infor mation No Information Assessments Type Assessment Date No Information Patient Care Teams Name Effective Dates (start - stop) Status Members No Information
[2025-08-10 09:56] VITALS: BMI 72.8
--- NOTE | 2025-08-10 09:57 | PC.NURSE ---
Pre [facility] has started construction of its new state of the art ER which will open Spring 2026. With this, we anticipate parking may be a challenge for some our surgical patients and families. Parking spaces are limited but are available for all Surgical, obstetrics, and ER patients sharing this lot. If you arrive and find you are having a hard time finding a parking space, please note that we understand the challenges, please drive around the hospital and park near Hospital Entrance 1. When you enter this entrance, you can ask a volunteer to direct or take you back to the surgical waiting area to check in. We appreciate everyone?s understanding of these expected challenges while we build for your future. Report to the outpatient green pavilion on date _[phone]_ at time _0830_ for procedure Time: _1030_ YOU MAY BE MONITORED AT HOSPITAL FOR UP TO 4 HOURS AFTER YOUR PROCEDURE. A visitor will be allowed to accompany the patient into the hospital. You and your visitor will be asked to self-screen and do not enter if you have any COVID symptoms. A mask is OPTIONAL within the hospital. Patients are to have no food or drink 6 hours prior to procedure time Driving will be restricted after the procedure, you must have a person to drive you home. Labs will be drawn in preop area and once reviewed, you will be taken to radiology area for procedure. When the procedure is completed, you will be taken to outpatient where you will be monitored for several hours. You may have one visitor in this area. Other than holding anti-coagulants, patient may take other medication(s) as scheduled. Prior to your appointment date patients are instructed to hold anti-coagulants after discussing with ordering provider to stop. If unable to discontinue anti-coagulants please notify radiologist. ? No aspirin or warfarin (Coumadin) for 7 days prior to the procedure. ? No clopidogrel (Plavix), ticagrelor (Brilinta), prasugrel (Effient) or dabigatran (Pradaxa) for 5 days prior to the procedure. ? No rivaroxaban (Xarelto), apixaban (Eliquis), dipyridamole (Aggrenox or Persantine) or cilostazol (Pletal) for 2 days prior to the procedure. Medications to discontinue per physician: Date to take last dose: Please leave all valuables, including medications, at home the day of procedure. The hospital will not accept responsibility for valuables. Wear comfortable, loose fitting clothing.? Follow any additional instructions given to you from ordering provider. Telephone instructions given to __Melina__and asked if any additional questions and then verbalized understanding. Patient advised to call scheduling provider office or registration scheduling [phone] if any additional questions.
[2025-08-21] VITALS (10 sets, daily range): BP systolic 132–172; BP diastolic 57–89; PULSE 79–94; RESP 22; TEMP 36.3; O2SAT 98
--- NOTE | ~2025-08-21 | US_ITS ---
EXAMINATION: US biopsy liver DATE: 08/21/2025 11:11 INDICATION: Other specified abnormal findings of blood chemistry. Diffuse hepatic steatosis. TECHNIQUE: The procedure including the risks and benefits was discussed with the patient. Risks discussed included bleeding and infection. The patient understood the risks and agreed to proceed. The skin overlying the left hepatic lobe was prepped and draped in usual sterile fashion. Anesthetic was administered with 1% lidocaine subcutaneously. An 18 gauge core biopsy needle was advanced under continuous ultrasound observation to the lesion of interest. 3 core biopsy specimens were obtained. The needle was removed and the entry site was cleaned and dressed. Post procedure ultrasound demonstrated no hemorrhage. FINDINGS: Ultrasound images demonstrate biopsy needle advanced into the anterior left hepatic lobe. Increased hepatic echogenicity consistent with diffuse hepatic steatosis. IMPRESSION: 1. Successful Ultrasound-guided random liver biopsy. Reviewed, dictated and finalized at location A.
--- OUTSIDE RECORDS SUMMARY | 2025-08-21 08:15 | XMS_ITS | Clinical Summary ---
Author Organization [facility] Address [id number] [place] [phone] Phone Care Team Providers Care Carpenter Repairer Name Role Phone Unavailable Primary Care Provider [...] 19+ 3-dose series) 2014 HPV/Cotest (21-29) 2016 HPV VACCINES (1 - 3-dose SCD M series) 2022 DTAP/TDAP/TD VACCINES (2 - T d or Tdap) 03/21/2025 03/21/2015 CERVICAL CANCER SCREENING 2025 HPV/Cotest (30-65) 2025 PAP SMEAR 2025 INFLUENZA VACCINE (#1) 2025 8, 01/13/2017, 09/20/2016 Insurance [employer] [facility] INDIVIDUAL EXCHANGE [id number]
[2025-08-21 08:50] LABS: Platelet Count Result 365 k/mm3 (150-375)
[2025-08-21 09:14] LABS: INR 1.1; Prothrombin Time 14.4 Seconds (11.1-14.7)
--- NOTE | 2025-08-21 09:32 | S_PTH ---
PATIENT: Cayla Angulo LOC: [facility] U#:[id number] AGE/SX: 30/F ROOM: RE08/21/[address]: Anuel Cunha MD : 1995 BED: DIS: 08/21/2025 SPEC #: [id number] RECD: 08/21/25 11:10 STATUS: NIR REFrankie #: [id number] DOUGIE: 08/21/25 09:[address]: Chantell Vaughan DEPT: [facility] Surgical RECD BY: Grace Ac ENTERED: 08/21/25 11:10 SP TYPE: Surgical OTHR DR: MD Kennedy Chau MD Tissues: A - Liver Biopsy Procedures: Pas with Diastase Unstained Slides Hematoxylin and Eosin Stain Reticulum Stain Trichrome Stain Gross and Microscopic Level 5 Iron Stain
== END 2025-08-21 14:52 | disposition home or self-care (01) ==
PROVIDERS: PCP Family Medicine; Referring Provider Internal Medicine Gastroenterology; Visit Provider Radiology Diagnostic Radiology
PROC: BF45ZZZ Ultrasonography of Liver (ICD-10-PCS; CPT 47000; principal; 2025-08-21 10:30)
DX: R79.89 Other specified abnormal findings of blood chemistry (principal); K76.0 Fatty (change of) liver, not elsewhere classified; R89.4 Abnormal immunological findings in specimens from other organs, systems and tissues
CPT/HCPCS: 36415; 47000; 76942; 85049; 85610; 88307; 88312; 88313

== ENCOUNTER 2025-08-23 12:12 | Outpatient (CLI) | payer OTHER, SELFPAY ==
[2025-08-23 12:24] LABS: Hematocrit 42.2 % (35.0-49.0); Hemoglobin 14.0 g/dL (12.0-15.0); Mean Corpuscular HGB Conc 33.2 g/dL (32-36); Mean Corpuscular Hemoglobin 30.6 pg (27.0-31.0); Mean Corpuscular Volume 92.3 fL (78.0-102.0); Platelet Count Result 382 K/mm3 (150-420); Red Blood Count 4.57 M/mm3 (4.20-5.40); White Blood Count 7.2 K/mm3 (4.8-10.8)
[2025-08-23 12:37] LABS: INR 0.9; Prothrombin Time 10.5 Seconds (9.50-12.1)
[2025-08-23 12:52] LABS: Alanine Aminotransferase 110 U/L (6-35); Albumin Level 4.4 g/dL (3.5-5.1); Alkaline Phosphatase 69 U/L (38-126); Anion Gap 11 mmol/L (4-12); Aspartate Amino Transferase 71 U/L (14-36); Bilirubin,Total 0.5 mg/dL (0.2-1.3); Blood Urea Nitrogen 11 mg/dL (7-17); Calcium 9.2 mg/dL (8.4-10.2); Carbon Dioxide 22 mmol/L (22-30); Chloride 108 mmol/L (98-107); Estimated Glomerular Filt Rate > 60; Glucose 162 mg/dL (65-110); Osmolality Calculated 295 mOsm/kg (285-295); Potassium 4.3 mmol/L (3.4-5.0); Sodium 141 mmol/L (137-145); Total Protein 7.1 g/dL (6.3-8.2)
--- OUTSIDE RECORDS SUMMARY | 2025-08-23 13:01 | XMS_ITS | Clinical Summary ---
Author Organization [facility] Address [id number] [place] [phone] Phone Care Team Providers Care Corrections Counselor Name Role Phone Unavailable Primary Care Provider [...] 8, 01/13/2017, 09/20/2016 Insurance [employer] [employer] [facility] INDIVIDUAL EXCHANGE [id number] [place] [address]
[2025-08-24 11:12] LABS: Hepatitis B Surface Antigen Negative; Hepatitis B Surface Antigen Negative (Negative)
[2025-08-24 11:18] LABS: HAV RESULT Negative (Negative); Hepatitis A Antibody IgM Negative; Hepatitis B Core IgM Result Negative (Negative)
[2025-08-24 11:30] LABS: HCV RETEST 1 0.06 S/C; HCV RETEST 2 0.06 S/C
== END 2025-08-23 12:13 | disposition home or self-care (01) ==
LOC: CHSLAB 12:13
PROVIDERS: PCP Family Medicine; Visit Provider Nurse Practitioner Family
DX: R79.89 Other specified abnormal findings of blood chemistry (principal); K76.0 Fatty (change of) liver, not elsewhere classified; E66.01 Morbid (severe) obesity due to excess calories
CPT/HCPCS: 36415; 80053; 80074; 85027; 85610

== ENCOUNTER 2025-10-10 08:39 | Outpatient (CLI) | payer OTHER, SELFPAY ==
--- OUTSIDE RECORDS SUMMARY | 2025-10-10 09:08 | XMS_ITS | Clinical Summary ---
Author Organization [facility] Address [address] [place] [address] Phone Care Team Providers Care Cafeteria Monitor Name Role Phone Unavailable Primary Care Provider [...] (#1) 2025 8, 01/13/2017, 09/20/2016 HPV VACCINES (No Doses Required) Completed Insurance [employer] [employer] [facility] INDIVIDUAL EXCHANGE [id number] [place] [address]
--- OUTSIDE RECORDS SUMMARY | 2025-10-10 09:08 | XMS_ITS | Encounter Summary ---
Author Organization [facility] Address [address] [facility] [place] [address] Care Team Providers Care Retail District Manager Name Role Phone Unavailable Primary Care Provider Unavailabl e Encounter Details Date Type Department Care Team (Late st Contact Info) Description 08/23/2025 Lab Requisition [facility] - Pathology Lab [address] [place] [address] Saw Grant MD [address] [place] [phone] Illness, unspecified Social History Tobacco Use Types Packs/Day Years Used Date Smoking Tobacco: Never Smokeless Tobacco: Never Comments:nonsmoker Alcohol Use Standard Drinks/Week Comments No 0 (1 standard drink = 0.6 oz pur e alcohol) Comments No Sex and Gender Information Value Date Recorded Sex Assigned at Not on file Legal Sex Female 11:28 AM SCALE ADJUSTER Gender Identity Not on file Sexual Orientation Not on file documented as of this encounter Functional Status * Is person deaf or have serious hearing difficulty? Answer Date of Assessment Author No 04/07/2020 3:18 PM Saeed Bianchi RN * Is person blind or have serious difficulty seeing? Answer Date of Assessment Author No 04/07/2020 3:18 PM Saeed Bianchi RN * Does person have serious difficulty walking/climbing stairs? Answer Date of Assessment Author No 04/07/2020 3:18 PM Saeed Bianchi RN * Does person have difficulty dressing/bathing? Answer Date of Assessment Author No 04/07/2020 3:18 PM CDT Saeed López RN * Does person have difficulty doing errands alone? Answer Date of Assessment Author No 04/07/2020 3:18 PM CDT Saeed López RN documented as of this encounter Mental Status * Does person have difficulty concentrating/remembering/making decisions? Answer Entry Date Author No 04/07/2020 3:18 PM CDT Saeed López RN documented in this encounter Plan of Treatment Not on file documented as of this encounter Procedures Procedure Name Priority Date/Time Associated Diagnosis Comments SLIDE PREP HISTOLOGY Routine 08/23/2025 8:57 AM CDT Illness, unspecified documented in this encounter Results * SLIDE PREP HISTOLOGY (08/23/2025 8:57 AM CDT) Client Specimen ID # [id number] 09/13/2025 12:45 PM SCALE ADJUSTER [facility] PATHOLOG[facility] LAB Number of Blocks Received 0 09/13/2025 12:45 PM SCALE ADJUSTER [facility] Number of Slides 1 09/13/2025 12:45 PM SCALE ADJUSTER [facility] Number of Control Slides 1 09/13/2025 12:45 PM SCALE ADJUSTER [facility] Pathology/Cytolo gy 08/23/2025 8:57 AM CDT 08/23/2025 8:57 AM CDT Saw Grant MD LAB - PATHOLOGY/CYTOLOGY ORDERAB LES Final Result Performing Organization Address [facility] Phone Number [facility] [address] [phone] documented in this encounter Visit Diagnoses Diagnosis Illness, unspecified documented in this encounter Additional Health Concerns Infection Onset Date Last Indicated Resolved Time MRSA Hx Comment:History of MRSA. Negative nasal pcr's for MRSA. No isolation needed at this time. Obtain nasal PCR for MRSA each admission. Isolate if MRSA positive or signs of infection present 06/10/18. 06/10/2018 06/10/2018 documented as of this encounter
--- OUTSIDE RECORDS SUMMARY | 2025-10-10 09:09 | XMS_ITS | Clinical Summary ---
Author Organization [facility] Address [address] [facility] [place] [address] Care Team Providers Care Crimping Machine Operator Name Role Phone Unavailable Primary Care Provider Unavailabl e Source Comments [facility],non-owned Affiliates and Associated Physician Practices is amultiple site organization consisting of ambulatory clinics and hospital sitesin [place], [place], [place] and [place]. This disclosure is being madepursuant to the Care Everywhere program and may not contain all information available regarding this patient. Last updated 18.[facility] Allergies Active Allergy Reactions Criticality Noted Date Comments Fish Allergy Urticaria,Shortness of Breath High 08/26 Ibuprofen Nausea and/or Vomiting 03/11/2018 Medications * This document contains information received from the source organization and may not represent a complete record from that organization. * Be aware that medications may not be up to date on this document. Alwaysverify current medications with the patient. 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 (F LUZONE; FLULAVAL; FLUARIX; AFLURIA QUADRIVALENT; 6MO+), 0.5 ML (IIV4) 12/15/2017,01/13/2017,09/20/2016 TDAP (7yrs+) 03/21/2015 Family History Medical History Relation Name Comments Depression Maternal Grandmother Diabetes Maternal Grandmother Depression Mother Hypertension Mother Cancer Paternal Grandmother Relation Name Status Comments Maternal Grandmother Mother Paternal Grandmother Social History Tobacco Use Types Packs/Day Years Used Date Smoking Tobacco: Never Smokeless Tobacco: Never Tobacco Cessation:Counseling Given: Yes Comments:nonsmoker Alcohol Use Standard Drinks/Week Comments No 0 (1 standard drink = 0.6 oz pur e alcohol) Comments No Sex and Gender Information Value Date Recorded Sex Assigned at Not on file Legal Sex Female 11:28 AM FORECAST ANALYST Gender Identity Not on file Sexual Orientation Not on file Last Filed Vital Signs Vital Sign Reading Time Taken Comments Blood Pressure 152/83 04/07/2020 7:48 AM CDT Pulse 77 04/07/2020 7:48 AM CDT Temperature 36.4 C (97.5 F) 04/07/2020 3:46 PM CDT Respiratory Rate 16 04/07/2020 7:48 AM CDT Oxygen Saturation 100% 04/07/2020 7:48 AM CDT Inhaled Oxygen Concentration - - Weight 184.2 kg (406 lb) 04/04/2020 11:01 AM CDT Height 175.3 cm (5' 9) 04/04/2020 11:01 AM CDT Body Mass Index 59.96 04/04/2020 11:01 AM CDT Plan of Treatment Health Maintenance Due Date Last Done Comments HIV SCREENING 2010 HEPATITIS C SCREENING 05/01/2013 HEPATITIS B VACCINE (1 of 3 - 19+ 3-dose series) 2014 PAP SMEAR 2016 HPV VACCINE (1 - 3-dose SCDM series) 2022 DTAP/TDAP/TD VACCINES (2 - T d or Tdap) 03/21/2025 03/21/2015 COVID-19 VACCINE (2024-2 6 season) 2025 INFLUENZA VACCINE (#1) 2025 8, 01/13/2017, 09/20/2016 ZOSTER VACCINE (1 of 2) 2045 HIB VACCINE Aged Out No longer eligi ble based on patient's age to complete this topic MENINGOCOCCAL (Group B) VACCINE SHARED DECISION-MAKING Aged Out No longer eligible based on patient's age to complete this topic MENINGOCOCCAL GROUPS A/C/Y/W VACCINE Aged Out No longer eligible b ased on patient's age to complete this topic PNEUMOCOCCAL VACCINE Aged Out No long er eligible based on patient's age to complete this topic Procedures Procedure Name Priority Date/Time Associated Diagnosis Comments SLIDE PREP HISTOLOGY Routine 08/23/2025 8:57 AM CDT Illness, unspecified from Last 3 Months Results * SLIDE PREP HISTOLOGY (08/23/2025 8:57 AM CDT) Client Specimen ID # [id number] 09/13/2025 12:45 PM FORECAST ANALYST [facility] PATHOLOGY LAB Number of Blocks Received 0 09/13/2025 12:45 PM [facility] PATH[facility] LAB Number of Slides 1 09/13/2025 12:45 PM FORECAST ANALYST [facility] PATH[facility]Y LAB Number of Control Slides 1 09/13/2025 12:45 PM [facility] Pathology/Cytolo gy 08/23/2025 8:57 AM CDT 08/23/2025 8:57 AM CDT Saw Grant MD LAB - PATHOLOGY/CYTOLOGY ORDERAB LES Final Result [facility] PATH[facility]Y LAB [address] [phone] from Last 3 Months Additional Health Concerns Infection Onset Date Last Indicated MRSA Hx Comment:History of MRSA. Negative nasal pcr's for MRSA. No isolation needed at this time. Obtain nasal PCR for MRSA each admission. Isolate if MRSA positive or signs of infection present 06/10/18. 06/10/2018 06/10/2018 Insurance [facility] [place] [address] [facility] [employer] Advance Directives * Full Code (Latest Code Status on File) Date Activated Date Inactivated Comments 04/04/2020 1:12 PM 04/07/2020 8:24 PM * Full Code Date Activated Date Inactivated Comments 06/08/2018 4:48 PM 06/13/2018 12:28 PM * Full Code Date Activated Date Inactivated Comments 03/12/2018 10:21 PM 03/16/2018 11:34 AM * Full Code Date Activated Date Inactivated Comments 03/12/2018 10:20 PM 03/12/2018 10:21 PM * Full Code Date Activated Date Inactivated Comments 03/12/2018 3:48 AM 03/12/2018 10:20 PM
== END 2025-10-10 08:40 | disposition home or self-care (01) ==
LOC: CHSCARD 08:41
PROVIDERS: PCP Family Medicine; Visit Provider Family Medicine
DX: R06.09 Other forms of dyspnea (principal)
CPT/HCPCS: 94060; 94726; 94729